=== PATIENT | female | born 1960 | race Caucasian/White ===

== ENCOUNTER 2017-08-09 09:02 | Inpatient (IN) | payer MEDICAID ==
[2017-08-09] MEDS ORDERED: Sodium Chloride 0.9% 1,000 ML IV STA (09:45)
[2017-08-09] MEDS ORDERED: Vancomycin 1 gm/NS 200 ml 1 GM/200 ML BAG IVPB STA (09:45)
--- NOTE | 2017-08-09 09:49 | C.PDOC ---
History Of Present Illness 57 y/o F s/p hernia repair 16 days ago at [facility] p/w abdominal pain x 4 days. Pain is mostly around the incision site on the R. Pain is sharp, constant, worse with palpation or movement. She also report discharge of pus from incision site and temperature of 100.2 last night. Denies chills, dyspnea, cough, dysuria. Contacted surgeon's office but informed physician is away on vacation and given appointment in 6 days. Patient contacted PMD Jose Cobb who instructed patient to go to ED. Time Seen by Provider: 08/09/17 09:19 Chief Complaint (Nursing): Wound Check Past Medical History Vital Signs: Last Vital Signs Temp 98.7 F 08/09/17 11:52 Pulse 61 08/09/17 11:52 Resp 18 08/09/17 11:52 BP 119/69 08/09/17 11:52 Pulse Ox 100 08/09/17 11:52 - Medical History PMH: Arthritis, Asthma, Emphysema, HTN, Hypercholesterolemia, Hyperlipidemia, Kidney Stones, Pneumonia, Sleep Apnea Denies: Chronic Kidney Disease Surgical History: Cholecystectomy Family History: States: No Known Family Hx - Social History Hx Alcohol Use: No Hx Substance Use: No - Immunization History Hx Tetanus Toxoid Vaccination: Yes Hx Influenza Vaccination: No Hx Pneumococcal Vaccination: Yes Review Of Systems Except As Marked, All Systems Reviewed And Found Negative. Cardiovascular: Negative for: Chest Pain Respiratory: Negative for: Shortness of Breath Physical Exam - Physical Exam Additional Physical Exam Comments: Constitutional: No acute distress. Head: Normocephalic. Atraumatic. Eyes: PERRL. EOMI. ENT: Moist mucous membranes. Neck: Supple. Cardiovascular: Regular rate. Radial pulses 2+ bilaterally. Chest: No tenderness. Respiratory: Clear to auscultation bilaterally. Abdomen: Incision along lower abdomen and from umbilicus, no significant surrounding erythema. Small amount of pus visible at intersecting point. Tenderness to R sided incision. Soft. Nondistended. Back: No CVA tenderness. Musculoskeletal: No tenderness or swelling of extremities. Skin: No rash. Neurologic: Alert, no focal deficit. CN II-XII intact. Sensation to light touch intact bilaterally. Motor 5/5 x 4. FTN, HTS normal. Steady gait. ED Course And Treatment - Laboratory Results Result Diagrams: 08/09/17 10:03 08/09/17 10:03 O2 Sat by Pulse Oximetry: 100 Pulse Ox Interpretation: Normal Medical Decision Making Medical Decision Making: Start antibiotics, will image with CT for abscess collection. Patient with previous IV contrast reaction, will obtain with contrast. Check labs, give pain medication. CXR IMPRESSION: No dense consolidation noted. Left perihilar patchy mostly cystic coalescence and wispy -thin fibrotic like scarring appearance may be postinflammatory -and may be chronic. Comparison with any prior outside chest x-ray is recommended. If none, consider follow-up elective CT chest without contrast EKG Sinus rhythm, 54 bpm, no ST/T wave changes. PROCEDURE: CT Abdomen and Pelvis without intravenous contrast HISTORY: hernia repair, pus from incision COMPARISON: None. TECHNIQUE: Axial and reformatted coronal and sagittal CT images of the abdomen and pelvis were obtained without IV or oral contrast administration.. Contrast Dose: 0 Radiation dose: Total exam DLP = 902.97 mGy-cm. This CT exam was performed using one or more of the following dose reduction techniques: Automated exposure control, adjustment of the mA and/or kV according to patient size, and/or use of iterative reconstruction technique. FINDINGS: LOWER THORAX: Unremarkable. LIVER: The liver slightly heterogeneous mildly enlarged. GALLBLADDER AND BILE DUCTS: Status post cholecystectomy. PANCREAS: [id number] fatty infiltration in the pancreas is noted. . No gross lesion or ductal dilatation. SPLEEN: Unremarkable. ADRENALS: Unremarkable. No mass. KIDNEYS AND URETERS: Unremarkable. No hydronephrosis. No solid mass. VASCULATURE: Unremarkable. No aortic aneurysm. BOWEL: Unremarkable. No obstruction. No gross mural thickening. APPENDIX: No evidence of appendicitis. PERITONEUM: Unremarkable. No free fluid. No free air. LYMPH NODES: Unremarkable. No enlarged lymph nodes. BLADDER: Unremarkable. REPRODUCTIVE: Unremarkable. BONES: No acute fracture. OTHER FINDINGS: There is subcutaneous fluid collection at the midline anterior abdominal wall 4.5 centimeter above the level of the umbilicus measures 7.7 centimeter in the transverse diameter and 2.4 centimeter in the AP diameter. There is a another fluid collection at the subcutaneous anterior lower abdominal wall measures 15.6 centimeter in the transverse diameter and 2.8 centimeter in the AP diameter and extending just be low the level of the umbilicus to the level of the anterior pubic ramus. IMPRESSION: Two subcutaneous fluid collections one above the umbilicus and one below the umbilicus as described above may represent postsurgical seroma or abscess formation. Subcutaneous stranding seen at the anterior abdominal wall likely represent postsurgical or inflammatory changes. Fat containing ventral hernia seen at the level of the umbilicus slightly to the left of the midline measures 2.7 centimeter in the AP diameter and 3.2 centimeter in the transverse diameter. No evidence of acute pathology in the abdomen and pelvis otherwise. Hospitalist paged [phone]. Dr. Mariee accepts patient to hospitalist service. Disposition Discussed With : Sherman Mariee Doctor Will See Patient In The: ED - Disposition Disposition: HOSPITALIZED Disposition Time: 11:40 Condition: FAIR Forms: [facility] ([place]auan) - Clinical Impression Clinical Impression: Intra-abdominal abscess - Scribe Statement The provider has reviewed the documentation as recorded by the Scribe Andrez Stein All medical record entries made by the Scribe were at my direction and personally dictated by me. I have reviewed the chart and agree that the record accurately reflects my personal performance of the history, physical exam, medical decision making, and the department course for this patient. I have also personally directed, reviewed, and agree with the discharge instructions and disposition.
[2017-08-09] MEDS ORDERED: Morphine 4 MG/ML VIAL ONE (10:04)
[2017-08-09] MEDS ORDERED: Sodium Chloride 0.9% 1,000 ML ONE ×2 (10:04→13:03)
[2017-08-09 10:12] LABS: BASO % 0.3 % (0.0-2.0); EOS # 0.1 K/uL (0.0-0.7); EOS % 1.1 % (0.0-4.0); HEMATOCRIT 34.4 % (34.0-47.0); LYMPH # 1.6 K/uL (1.0-4.3); LYMPH % 30.2 % (20.0-40.0); MEAN CELL VOLUME 82.5 fL (81.0-99.0); MEAN CORPUSCULAR HEMOGLOBIN 27.2 pg (27.0-31.0); MEAN PLATELET VOLUME 8.4 fL (7.2-11.7); MONO # 0.4 K/uL (0.0-0.8); MONO % 7.9 % (0.0-10.0); RED CELL DISTRIBUTION WIDTH 14.1 % (11.5-14.5); WHITE BLOOD COUNT 5.4 K/uL (4.8-10.8)
[2017-08-09 10:14] LABS: CHLORIDE 105 mmol/L (98-107); INR 1.1; SODIUM 138 mmol/L (132-148)
[2017-08-09 10:15] LABS: POTASSIUM 3.6 mmol/L (3.6-5.2)
[2017-08-09 10:17] LABS: ALB/GLOB RATIO 1.1 (1.0-2.1); ALKALINE PHOSPHATASE 82 U/L (38-126); ALT/SGPT 30 U/L (9-52); AST/SGOT 17 U/L (14-36); BILIRUBIN,TOTAL 0.6 mg/dL (0.2-1.3); BLOOD UREA NITROGEN 12 mg/dL (7-17); CARBON DIOXIDE 26 mmol/L (22-30); GFR AFRICAN-AMERICAN > 60; GLUCOSE,RANDOM 94 mg/dL (65-105); TOTAL PROTEIN 6.9 g/dL (6.3-8.3)
[2017-08-09] MEDS ORDERED: Vancomycin 1 GM 1 GM/250 ML BAG IVPB ONE (10:29)
--- NOTE | 2017-08-09 10:35 | RAD ---
HISTORY: wound infection COMPARISON: No prior. FINDINGS: LUNGS: There is patchy wisp like linear opacities projecting over the left perihilar/ left upper lung zone which may represent combined coalescence pulmonary cystic changes with postinflammatory thin scarring. No comparisons available to evaluate chronicity. PLEURA: No significant pleural effusion identified, no pneumothorax apparent. CARDIOVASCULAR: Top-normal OSSEOUS STRUCTURES: No significant abnormalities. VISUALIZED UPPER ABDOMEN: Normal. OTHER FINDINGS: None. IMPRESSION: No dense consolidation noted. Left perihilar patchy mostly cystic coalescence and wispy -thin fibrotic like scarring appearance may be postinflammatory -and may be chronic. Comparison with any prior outside chest x-ray is recommended. If none, consider follow-up elective CT chest without contrast
[2017-08-09 11:09] LABS: RBC URINE 6 /hpf (0-3); URINE BACTERIA OCC (<OCC); URINE BILIRUBIN NEGATIVE (NEGATIVE); URINE BLOOD 1+ (NEGATIVE); URINE CALCIUM OXALATE CRYSTALS FEW /hpf (<OCC); URINE COLOR Yellow (YELLOW); URINE GLUCOSE (UA) NORMAL (Normal); URINE KETONE NEGATIVE (NEGATIVE); URINE LEUKOCYTE ESTERASE NEG Leu/uL (Negative); URINE PROTEIN 1+ mg/dL (NEGATIVE); URINE UROBILINOGEN NORMAL mg/dL (0.2-1.0); WBC URINE 4 /hpf (0-5)
--- NOTE | 2017-08-09 11:26 | CT ---
PROCEDURE: CT Abdomen and Pelvis without intravenous contrast HISTORY: hernia repair, pus from incision COMPARISON: None. TECHNIQUE: Axial and reformatted coronal and sagittal CT images of the abdomen and pelvis were obtained without IV or oral contrast administration.. Contrast Dose: 0 Radiation dose: Total exam DLP = 902.97 mGy-cm. This CT exam was performed using one or more of the following dose reduction techniques: Automated exposure control, adjustment of the mA and/or kV according to patient size, and/or use of iterative reconstruction technique. FINDINGS: LOWER THORAX: Unremarkable. LIVER: The liver slightly heterogeneous mildly enlarged. GALLBLADDER AND BILE DUCTS: Status post cholecystectomy. PANCREAS: [id number]-[id number] fatty infiltration in the pancreas is noted. . No gross lesion or ductal dilatation. SPLEEN: Unremarkable. ADRENALS: Unremarkable. No mass. KIDNEYS AND URETERS: Unremarkable. No hydronephrosis. No solid mass. VASCULATURE: Unremarkable. No aortic aneurysm. BOWEL: Unremarkable. No obstruction. No gross mural thickening. APPENDIX: No evidence of appendicitis. PERITONEUM: Unremarkable. No free fluid. No free air. LYMPH NODES: Unremarkable. No enlarged lymph nodes. BLADDER: Unremarkable. REPRODUCTIVE: Unremarkable. BONES: No acute fracture. OTHER FINDINGS: There is subcutaneous fluid collection at the midline anterior abdominal wall 4.5 centimeter above the level of the umbilicus measures 7.7 centimeter in the transverse diameter and 2.4 centimeter in the AP diameter. There is a another fluid collection at the subcutaneous anterior lower abdominal wall measures 15.6 centimeter in the transverse diameter and 2.8 centimeter in the AP diameter and extending just be low the level of the umbilicus to the level of the anterior pubic ramus. IMPRESSION: Two subcutaneous fluid collections one above the umbilicus and one below the umbilicus as described above may represent postsurgical seroma or abscess formation. Subcutaneous stranding seen at the anterior abdominal wall likely represent postsurgical or inflammatory changes. Fat containing ventral hernia seen at the level of the umbilicus slightly to the left of the midline measures 2.7 centimeter in the AP diameter and 3.2 centimeter in the transverse diameter. No evidence of acute pathology in the abdomen and pelvis otherwise.
--- NOTE | 2017-08-09 12:25 | CP.PCM.HP ---
<Barbara Gomes - Last Filed: 08/09/17 15:01> History of Present Illness - History of Present Illness History of Present Illness: Medicine Note for Hospitalist Service CC: abdominal pain HPI: 57F with PMHx of presents to the ED s/p tummy tuck (and 2 inguinal hernia repair) performed on 07/24/17 with fever, chills, and abdominal pain. Patient reports she was discharged the same day of the surgery and instructed to take Keflex 500mg PO daily x 2 weeks. She started to have fever, chills, abdominal pain, n/v/d, and vaginal bleeding (spotting) and discharged. Patient reports she has been having immense pain, discharge and pus from the surgical site. Denied headache, chest pain, SOB, or uinary symptoms. PMHx: HTN, DM, Breast Cancer Stage 2 currently undergoing Radiation (next session 08/16/17), Arthritis, Asthma PSHx: Gastric Bypass, then Bypass Reversal, cholecystectomy, chest tube 2/2 pneumothorax, carpal tunnel bilaterally Meds: As per MAR, confirmed and reviewed All: NKDA, reaction to IV contrast that occurred once SHx: Denied tobacco, ETOH, or illicit drug use FHx: Mother and Maternal Grandmother of breast cancer in their 50s. Father of colon cancer Patient reports she had colonoscopy this year, normal. PMD: Jose Cobb Present on Admission - Present on Admission Any Indicators Present on Admission: No Past Patient History - Infectious Disease Hx of Infectious Diseases: None - Past Medical History & Family History Past Medical History?: Yes - Past Social History Smoking Status: Never Smoked - CARDIAC Hx Hypercholesterolemia: Yes Hx Hypertension: Yes - PULMONARY Hx Asthma: Yes Hx Emphysema: Yes Hx Pneumonia: Yes Hx Sleep Apnea: Yes - NEUROLOGICAL Hx Neurological Disorder: No - HEENT Hx HEENT Problems: No - RENAL Hx Chronic Kidney Disease: No Hx Kidney Stones: Yes - ENDOCRINE/METABOLIC Hx Endocrine Disorders: Yes Hx Diabetes Mellitus Type 2: Yes - HEMATOLOGICAL/ONCOLOGICAL Hx Blood Disorders: Yes Hx Cancer: Yes (LT BREAST CA) - INTEGUMENTARY Hx Dermatological Problems: No - MUSCULOSKELETAL/RHEUMATOLOGICAL Hx Arthritis: Yes - GASTROINTESTINAL Hx Gastrointestinal Disorders: No - GENITOURINARY/GYNECOLOGICAL Hx Genitourinary Disorders: No - PSYCHIATRIC Hx Substance Use: No - SURGICAL HISTORY Hx Cholecystectomy: Yes - ANESTHESIA Hx Anesthesia: Yes Hx Anesthesia Reactions: No Hx Malignant Hyperthermia: No Meds Allergies/Adverse Reactions: Allergies Allergy/AdvReac Type Severity Reaction Status Date / Time No Known Allergies Allergy Verified 08/09/17 09:09 Physical Exam - Head Exam Head Exam: NORMAL INSPECTION, NORMOCEPHALIC - Eye Exam Eye Exam: EOMI, Normal appearance, PERRL Pupil Exam: NORMAL ACCOMODATION - ENT Exam ENT Exam: Mucous Membranes Moist Additional comments: ORAL THRUSH NOTED ON TONGUE - Neck Exam Neck exam: Positive for: Normal Inspection. Negative for: Lymphadenopathy, Thyromegaly - Respiratory Exam Respiratory Exam: Clear to Auscultation Bilateral, NORMAL BREATHING PATTERN. absent: Decreased Breath Sounds, Wheezes - Cardiovascular Exam Cardiovascular Exam: REGULAR RHYTHM - GI/Abdominal Exam GI & Abdominal Exam: Mass (epigastric area TTP; Incision along lower abdomen and from umbilicus, no significant surrounding erythema. Small amount of pus visible at intersecting point. Tenderness to R sided incision. ), Soft, Tenderness. absent: Distended, Organomegaly - Extremities Exam Extremities exam: Positive for: normal inspection, pedal pulses present. Negative for: pedal edema, tenderness - Back Exam Back exam: NORMAL INSPECTION - Neurological Exam Neurological exam: Alert, CN II-XII Intact, Oriented x3 - Psychiatric Exam Psychiatric exam: Normal Affect, Normal Mood - Skin Skin Exam: Dry, Intact, Normal Color, Warm Results - Vital Signs Recent Vital Signs: Last Vital Signs Temp 98.7 F 08/09/17 11:52 Pulse 61 08/09/17 11:52 Resp 18 08/09/17 11:52 BP 119/69 08/09/17 11:52 Pulse Ox 100 08/09/17 12:21 - Labs Result Diagrams: 08/09/17 10:03 08/09/17 10:03 Labs: Laboratory Results - last 24 hr 08/09/17 08/09/17 08/09/17 10:03 10:03 10:03 WBC 5.4 RBC 4.17 Hgb 11.3 Hct 34.4 MCV 82.5 MCH 27.2 MCHC 33.0 RDW 14.1 Plt Count 213 MPV 8.4 Neut % (Auto) 60.5 Lymph % (Auto) 30.2 [place] % (Auto) 7.9 Eos % (Auto) 1.1 Baso % (Auto) 0.3 Neut # 3.3 Lymph # 1.6 [place] # 0.4 Eos # 0.1 Baso # 0.0 PT 12.0 INR 1.1 APTT 28 Sodium 138 Potassium 3.6 Chloride 105 Carbon Dioxide 26 Anion Gap 11 BUN 12 Creatinine 0.6 L Est GFR ( Amer) > 60 Est GFR (Non-Af Amer) > 60 Random Glucose 94 Calcium 9.0 Total Bilirubin 0.6 AST 17 ALT 30 Alkaline Phosphatase 82 Total Protein 6.9 Albumin 3.6 Globulin 3.3 Albumin/Globulin Ratio 1.1 Lipase 25 Urine Color Urine Clarity Urine pH Ur Specific [place] Urine Protein Urine Glucose (UA) Urine Ketones Urine Blood Urine Nitrate Urine Bilirubin Urine Urobilinogen Ur Leukocyte Esterase Urine WBC (Auto) Urine RBC (Auto) Ur Squamous Epith Cells Calcium Oxalate Crystal Urine Bacteria Blood Type Antibody Screen 08/09/17 08/09/17 10:30 10:30 WBC RBC Hgb Hct MCV MCH MCHC RDW Plt Count MPV Neut % (Auto) Lymph % (Auto) [place] % (Auto) Eos % (Auto) Baso % (Auto) Neut # Lymph # [place] # Eos # Baso # PT INR APTT Sodium Potassium Chloride Carbon Dioxide Anion Gap BUN Creatinine Est GFR ( Amer) Est GFR (Non-Af Amer) Random Glucose Calcium Total Bilirubin AST ALT Alkaline Phosphatase Total Protein Albumin Globulin Albumin/Globulin Ratio Lipase Urine Color Yellow Urine Clarity Hazy Urine pH 5.0 Ur Specific [place] 1.020 Urine Protein 1+ H Urine Glucose (UA) Normal Urine Ketones Negative Urine Blood 1+ H Urine Nitrate Negative Urine Bilirubin Negative Urine Urobilinogen Normal Ur Leukocyte Esterase Neg Urine WBC (Auto) 4 Urine RBC (Auto) 6 H Ur Squamous Epith Cells 6 H Calcium Oxalate Crystal Few H Urine Bacteria Occ H Blood Type A POSITIVE Antibody Screen Negative Assessment & Plan - Assessment and Plan (Free Text) Plan: Intraabdominal Abscess S/P tummy tuck, R inguinal hernia x 2 07/24/17 - Surgeon Dr. Tera Gentile? established [facility] Afebrile, no leukocytosis or left shift CT abdomen and pelvis 08/09/17: Two subcutaneous fluid collections one above the umbilicus and one below the umbilicus as described above may represent postsurgical seroma or abscess formation.Subcutaneous stranding seen at the anterior abdominal wall likely represent postsurgical or inflammatory changes. Fat containing ventral hernia seen at the level of the umbilicus slightly to the left of the midline measures 2.7 centimeter in the AP diameter and 3.2 centimeter in the transverse diameter. No evidence of acute pathology in the abdomen and pelvis otherwise. F/U BC, UC, WC, vanco trough NS @ 100cc/hr Started on Vancomycin 1gram daily, Zosyn Q6H Tramadol, Morphine PRN, Colace PO TID, Zofran PRN Hx of HTN Continue home medications: HCTZ 12.5 PO daily, Cozaar 100mg PO daily, Norvasc 5mg PO daily Hx of Asthma Continue home medications: Singulair 10mg PO daily Pulm: Dr. Krause Hx of DM Accuchecks F/U A1C ISS- Medium Oral Thrush One time dose of Diflucan, magic mouthwash Hx Anxiety/Depression Resumed home medications: Xanax, Restoril and Lexapro Hx of Breast Cancer Currently undergoing Radiation, next session 08/16/17 Strong family history of breast cancer-mother and maternal grandmother of breast cancer 50s Heme/Onc: [facility] Maintenance Colonoscopy performed this year WNL - father of colon cancer Prophylactic Measures GI PPX: Protonix 40mg IVP daily DVT PPX: SCDs, anticoag held due to possible OR HHD DW Mireya Barriga DO, PGY-1 <Sherman Mariee - Last Filed: 08/09/17 17:39> Results - Vital Signs Recent Vital Signs: Last Vital Signs Temp 98.7 F 08/09/17 11:52 Pulse 61 08/09/17 11:52 Resp 20 08/09/17 14:13 BP 119/69 08/09/17 11:52 Pulse Ox 100 08/09/17 12:21 - Labs Result Diagrams: 08/09/17 10:03 08/09/17 10:03 Labs: Laboratory Results - last 24 hr 08/09/17 08/09/17 08/09/17 10:03 10:03 10:03 WBC 5.4 RBC 4.17 Hgb 11.3 Hct 34.4 MCV 82.5 MCH 27.2 MCHC 33.0 RDW 14.1 Plt Count 213 MPV 8.4 Neut % (Auto) 60.5 Lymph % (Auto) 30.2 [place] % (Auto) 7.9 Eos % (Auto) 1.1 Baso % (Auto) 0.3 Neut # 3.3 Lymph # 1.6 [place] # 0.4 Eos # 0.1 Baso # 0.0 PT 12.0 INR 1.1 APTT 28 Sodium 138 Potassium 3.6 Chloride 105 Carbon Dioxide 26 Anion Gap 11 BUN 12 Creatinine 0.6 L Est GFR ( Amer) > 60 Est GFR (Non-Af Amer) > 60 POC Glucose (mg/dL) Random Glucose 94 Calcium 9.0 Total Bilirubin 0.6 AST 17 ALT 30 Alkaline Phosphatase 82 Total Protein 6.9 Albumin 3.6 Globulin 3.3 Albumin/Globulin Ratio 1.1 Lipase 25 Urine Color Urine Clarity Urine pH Ur Specific [place] Urine Protein Urine Glucose (UA) Urine Ketones Urine Blood Urine Nitrate Urine Bilirubin Urine Urobilinogen Ur Leukocyte Esterase Urine WBC (Auto) Urine RBC (Auto) Ur Squamous Epith Cells Calcium Oxalate Crystal Urine Bacteria Blood Type Antibody Screen 08/09/17 08/09/17 08/09/17 10:30 10:30 17:16 WBC RBC Hgb Hct MCV MCH MCHC RDW Plt Count MPV Neut % (Auto) Lymph % (Auto) [place] % (Auto) Eos % (Auto) Baso % (Auto) Neut # Lymph # [place] # Eos # Baso # PT INR APTT Sodium Potassium Chloride Carbon Dioxide Anion Gap BUN Creatinine Est GFR ( Amer) Est GFR (Non-Af Amer) POC Glucose (mg/dL) 108 Random Glucose Calcium Total Bilirubin AST ALT Alkaline Phosphatase Total Protein Albumin Globulin Albumin/Globulin Ratio Lipase Urine Color Yellow Urine Clarity Hazy Urine pH 5.0 Ur Specific [place] 1.020 Urine Protein 1+ H Urine Glucose (UA) Normal Urine Ketones Negative Urine Blood 1+ H Urine Nitrate Negative Urine Bilirubin Negative Urine Urobilinogen Normal Ur Leukocyte Esterase Neg Urine WBC (Auto) 4 Urine RBC (Auto) 6 H Ur Squamous Epith Cells 6 H Calcium Oxalate Crystal Few H Urine Bacteria Occ H Blood Type A POSITIVE Antibody Screen Negative Attending/Attestation - Attestation I have personally seen and examined this patient.: Yes I have fully participated in the care of the patient.: Yes I have reviewed all pertinent clinical information: Yes Notes (Text): Medical attending: Patient was seen and examined by me, agree with the above note by medical billing manager. This is a very nice 57-year-old female who very recently has had several abdominal procedures. On being told that she has recently had an abdominal hernia repair x 2 as well as abdominalplasty. Of note the patient also has a history of gastric bypass. She also had a recent follow-up with surgery and had the abdominal drains removed. She was given a prescription for Keflex to be continued and she's been taking that however she reports that for the past several days she's had progressively worsening fever, pain is also noted some purulent discharge from the wound sites. When we saw her she was removed up to the sixth floor, she is not under any acute distress when we saw her. In the medical billing manager had already started vancomycin and Zosyn. I agree with this. We will follow her blood cultures as well as the wound cultures. At this moment remains to be seen in these areas will have to are surgical intervention or free can be drained via IR for example As mentioned previously the patient had a CT scan of the abdomen and pelvis which showed that she has at least 2 small areas of potential a lot to be an abscess. There is no mention of a mesh used in the report. Also there is a history of breast cancer. The patient is no longer getting chemotherapy but she explains to us that she still recently getting radiation treatments. Thank you very much, Sherman Mariee
[2017-08-09] MEDS: Sodium Chloride 0.9% 1,000 ML IV SCH (12:59)
[2017-08-09] MEDS ORDERED: Piperacillin/Tazobact 3.375 gm 100 ML IVPB ONE (13:03)
--- NOTE | 2017-08-09 14:10 | CP.PCM.CON ---
History of Present Illness - History of Present Illness History of Present Illness: General Surgery Dr. Velasco 57 y/o F w/ PMHx of HTN, HLD, DM2, gastric bypass presents other ED c/o abd pain and drainage s/p abdominoplasty on 07/24. Pt states she had surgery at [facility] on 07/24. Post-op, pt was told she had 2 incidental hernia that were repaired. Pt is unsure if they were repaired primarily or w/ mesh. Pt admits to taking cephlexin as prescribed by the surgeon. Pt reports attending her follow up appoint on 08/01 at which time 2 drains were removed from her incision line. Pt reports fever, chills, abd pain beginning that evening. Pt report foul- smelling drainage from lateral aspects of incision and umbilicus. Pt also admits to nausea, vomiting, diarrhea, constipation, and pain after bowel mvt. PMHx: HTN, HLD, asthma, pneumonia w/ empyema, DM2, breast Ca, herniated disks, vertigo Meds: reviewed in chart NKDA PSHx: abdominoplasty (07/24/17), laparoscopic gastric bypass w/ josué, L breast lumpectomy, B/L carpal tunnel release, chest tube SHx: denies tobacco, EtOH, drug use FHx: noncontributory Review of Systems - Review of Systems All systems: reviewed and no additional remarkable complaints except (see HPI) Past Patient History - Infectious Disease Hx of Infectious Diseases: None - Past Medical History & Family History Past Medical History?: Yes - Past Social History Smoking Status: Never Smoked - CARDIAC Hx Hypercholesterolemia: Yes Hx Hypertension: Yes - PULMONARY Hx Asthma: Yes Hx Emphysema: Yes Hx Pneumonia: Yes Hx Sleep Apnea: Yes - NEUROLOGICAL Hx Neurological Disorder: No - HEENT Hx HEENT Problems: No - RENAL Hx Chronic Kidney Disease: No Hx Kidney Stones: Yes - ENDOCRINE/METABOLIC Hx Endocrine Disorders: Yes Hx Diabetes Mellitus Type 2: Yes - HEMATOLOGICAL/ONCOLOGICAL Hx Blood Disorders: Yes Hx Cancer: Yes (LT BREAST CA) - INTEGUMENTARY Hx Dermatological Problems: No - MUSCULOSKELETAL/RHEUMATOLOGICAL Hx Arthritis: Yes - GASTROINTESTINAL Hx Gastrointestinal Disorders: No - GENITOURINARY/GYNECOLOGICAL Hx Genitourinary Disorders: No - PSYCHIATRIC Hx Substance Use: No - SURGICAL HISTORY Hx Cholecystectomy: Yes - ANESTHESIA Hx Anesthesia: Yes Hx Anesthesia Reactions: No Hx Malignant Hyperthermia: No Meds Allergies/Adverse Reactions: Allergies Allergy/AdvReac Type Severity Reaction Status Date / Time No Known Allergies Allergy Verified 08/09/17 09:09 - Medications Medications: Current Medications Acetaminophen (Tylenol 325mg Tab) 650 mg PO Q6 PRN PRN Reason: Fever >100.4 F Alprazolam (Xanax) 0.5 mg PO DAILY [facility] Amlodipine Besylate (Norvasc) 20 mg PO DAILY [facility] Docusate Sodium (Colace) 100 mg PO TID [facility] Hydrochlorothiazide (Microzide) 12.5 mg PO DAILY [facility] Sodium Chloride (Sodium Chloride 0.9%) 1,000 mls @ 100 mls/hr IV .Q10H [facility] Last Admin: 08/09/17 12:59 Dose: 100 mls/hr Piperacillin Sod/Tazobactam Sod (Zosyn 3.375 Gm Iv Premix) 3.375 gm in 50 mls @ 100 mls/hr IVPB Q6H [facility] Vancomycin/Sodium Chloride (Vancomycin 1 Gm/Ns 200 Ml) 1 gm in 200 mls @ 133.333 mls/hr IVPB Q24H [facility] Stop: 08/15/17 10:01 Losartan Potassium (Cozaar) 100 mg PO DAILY [facility] Montelukast Sodium (Singulair) 10 mg PO DAILY [facility] Morphine Sulfate (Morphine) 1 mg IVP Q4H PRN PRN Reason: Pain, severe (8-10) Ondansetron HCl (Zofran Inj) 4 mg IVP Q6 PRN PRN Reason: Nausea/Vomiting Pantoprazole Sodium (Protonix Ec Tab) 40 mg PO DAILY [facility] Temazepam (Restoril) 30 mg PO HS [facility] Physical Exam - Constitutional Appears: Non-toxic, No Acute Distress - Head Exam Head Exam: NORMAL INSPECTION - Eye Exam Eye Exam: Normal appearance - ENT Exam ENT Exam: Mucous Membranes Moist - Respiratory Exam Respiratory Exam: NORMAL BREATHING PATTERN. absent: Accessory Muscle Use, Respiratory Distress - Cardiovascular Exam Cardiovascular Exam: absent: Bradycardia, Tachycardia - GI/Abdominal Exam GI & Abdominal Exam: Soft, Tenderness (chandana-incisional TTP). absent: Distended , Rebound, Rigid Additional comments: lower abd incision well approximated. no drainage noted mild erythema, no induration or fluctuance palpable - Extremities Exam Extremities exam: Positive for: normal inspection - Neurological Exam Neurological exam: Alert, Oriented x3 - Psychiatric Exam Psychiatric exam: Normal Affect, Normal Mood - Skin Skin Exam: Dry, Normal Color, Warm Results - Vital Signs Recent Vital Signs: Last Vital Signs Temp 98.7 F 08/09/17 11:52 Pulse 61 08/09/17 11:52 Resp 18 08/09/17 11:52 BP 119/69 08/09/17 11:52 Pulse Ox 100 08/09/17 12:21 - Labs Result Diagrams: 08/09/17 10:03 08/09/17 10:03 Labs: Laboratory Results - last 24 hr 08/09/17 08/09/17 08/09/17 10:03 10:03 10:03 WBC 5.4 RBC 4.17 Hgb 11.3 Hct 34.4 MCV 82.5 MCH 27.2 MCHC 33.0 RDW 14.1 Plt Count 213 MPV 8.4 Neut % (Auto) 60.5 Lymph % (Auto) 30.2 [place] % (Auto) 7.9 Eos % (Auto) 1.1 Baso % (Auto) 0.3 Neut # 3.3 Lymph # 1.6 [place] # 0.4 Eos # 0.1 Baso # 0.0 PT 12.0 INR 1.1 APTT 28 Sodium 138 Potassium 3.6 Chloride 105 Carbon Dioxide 26 Anion Gap 11 BUN 12 Creatinine 0.6 L Est GFR ( Amer) > 60 Est GFR (Non-Af Amer) > 60 Random Glucose 94 Calcium 9.0 Total Bilirubin 0.6 AST 17 ALT 30 Alkaline Phosphatase 82 Total Protein 6.9 Albumin 3.6 Globulin 3.3 Albumin/Globulin Ratio 1.1 Lipase 25 Urine Color Urine Clarity Urine pH Ur Specific Tiger Urine Protein Urine Glucose (UA) Urine Ketones Urine Blood Urine Nitrate Urine Bilirubin Urine Urobilinogen Ur Leukocyte Esterase Urine WBC (Auto) Urine RBC (Auto) Ur Squamous Epith Cells Calcium Oxalate Crystal Urine Bacteria Blood Type Antibody Screen 08/09/17 08/09/17 10:30 10:30 WBC RBC Hgb Hct MCV MCH MCHC RDW Plt Count MPV Neut % (Auto) Lymph % (Auto) [place] % (Auto) Eos % (Auto) Baso % (Auto) Neut # Lymph # [place] # Eos # Baso # PT INR APTT Sodium Potassium Chloride Carbon Dioxide Anion Gap BUN Creatinine Est GFR ( Amer) Est GFR (Non-Af Amer) Random Glucose Calcium Total Bilirubin AST ALT Alkaline Phosphatase Total Protein Albumin Globulin Albumin/Globulin Ratio Lipase Urine Color Yellow Urine Clarity Hazy Urine pH 5.0 Ur Specific Tiger 1.020 Urine Protein 1+ H Urine Glucose (UA) Normal Urine Ketones Negative Urine Blood 1+ H Urine Nitrate Negative Urine Bilirubin Negative Urine Urobilinogen Normal Ur Leukocyte Esterase Neg Urine WBC (Auto) 4 Urine RBC (Auto) 6 H Ur Squamous Epith Cells 6 H Calcium Oxalate Crystal Few H Urine Bacteria Occ H Blood Type A POSITIVE Antibody Screen Negative - Imaging and Cardiology CT scan - abdomen Status: Report reviewed by me Assessment & Plan - Assessment and Plan (Free Text) Assessment: 57 y/o F s/p abdominoplasty w/ incisional abscess vs seroma - IV Abx - warm compresses TID - pain management - f/u wound Cx - cont medical management Pt discussed w/ Dr. Krista Bhakta DO PGY2
[2017-08-09] MEDS ORDERED: Promethazine 12.5 mg/10 ml Syrup PO PRN (14:51)
[2017-08-09] MEDS: (Novolin R) Insulin Human Regular 100 units/ml vial SC SCH ×2 (17:23→22:27)
[2017-08-09] MEDS: Tramadol 25 mg PO PRN (17:33)
[2017-08-09] MEDS: Piperacill/Tazo 3.375gm in Dex 3.375 GM/50 ML BAG IVPB SCH (19:38)
[2017-08-09] MEDS: Mag&Al/Simet/Diphen/Lido 237 ML KIT PO SCH (19:41)
[2017-08-10] MEDS: Sodium Chloride 0.9% 1,000 ML IV SCH ×3 (00:50→21:42)
[2017-08-10] MEDS: Piperacill/Tazo 3.375gm in Dex 3.375 GM/50 ML BAG IVPB SCH ×4 (01:06→18:53)
[2017-08-10 08:10] LABS: BASO % 0.1 % (0.0-2.0); EOS % 1.8 % (0.0-4.0); HEMATOCRIT 28.9 % (34.0-47.0); LYMPH # 0.3 K/uL (1.0-4.3); LYMPH % 13.1 % (20.0-40.0); MEAN CORPUSCULAR HEMOGLOBIN 27.7 pg (27.0-31.0); MEAN CORPUSCULAR HGB CONC 33.7 g/dL (33.0-37.0); MEAN PLATELET VOLUME 8.2 fL (7.2-11.7); MONO # 0.2 K/uL (0.0-0.8); MONO % 8.4 % (0.0-10.0); RED CELL DISTRIBUTION WIDTH 14.2 % (11.5-14.5)
[2017-08-10] MEDS: (Novolin R) Insulin Human Regular 100 units/ml vial SC SCH ×4 (08:12→21:30)
[2017-08-10 08:15] LABS: CHLORIDE 102 mmol/L (98-107); POTASSIUM 3.6 mmol/L (3.6-5.2); SODIUM 135 mmol/L (132-148)
[2017-08-10 08:16] LABS: BILIRUBIN,TOTAL 0.7 mg/dL (0.2-1.3); CARBON DIOXIDE 24 mmol/L (22-30); CHOLESTEROL 124 mg/dL (0-199); GFR AFRICAN-AMERICAN > 60
[2017-08-10 08:17] LABS: ALB/GLOB RATIO 1.2 (1.0-2.1); ALKALINE PHOSPHATASE 68 U/L (38-126); ALT/SGPT 29 U/L (9-52); AST/SGOT 17 U/L (14-36); BLOOD UREA NITROGEN 10 mg/dL (7-17); CALCIUM 7.9 mg/dl (8.6-10.4); GLUCOSE,RANDOM 84 mg/dL (65-105); PHOSPHOROUS 4.8 mg/dL (2.5-4.5); TOTAL PROTEIN 5.4 g/dL (6.3-8.3)
[2017-08-10 08:18] LABS: MAGNESIUM 1.8 mg/dL (1.6-2.3)
[2017-08-10 08:19] LABS: WHITE BLOOD COUNT 2.5 K/uL (4.8-10.8)
[2017-08-10] MEDS ORDERED: Oxycodone/Acetaminophen 5/325 mg Tab PO PRN (08:44)
[2017-08-10] MEDS ORDERED: Bisacodyl 5mg EC Tab PO ONE (09:42)
--- NOTE | 2017-08-10 09:42 | CP.PCM.PN ---
Subjective - Date & Time of Evaluation Date of Evaluation: 08/10/17 Time of Evaluation: 06:45 - Subjective Subjective: General Surgery Dr. Velasco Pt seen and examined @bedside. no events overnight. c/o chandana-incisional pain. admits chills. no fever, N&V, diarrhea, constipation. tolerating diet. Objective - Vital Signs/Intake and Output Vital Signs (last 24 hours): Temp Pulse Resp BP Pulse Ox 98.2 F 72 20 104/68 97 08/10/17 07:30 08/10/17 07:30 08/10/17 07:30 08/10/17 07:30 08/10/17 07:30 - Medications Medications: Current Medications Acetaminophen (Tylenol 325mg Tab) 650 mg PO Q6 PRN PRN Reason: Fever >100.4 F Alprazolam (Xanax) 0.5 mg PO DAILY [facility] Amlodipine Besylate (Norvasc) 10 mg PO DAILY [facility] Docusate Sodium (Colace) 100 mg PO TID [facility] Last Admin: 08/09/17 17:33 Dose: 100 mg Escitalopram Oxalate (Lexapro) 10 mg PO DAILY [facility] Hydrochlorothiazide (Microzide) 12.5 mg PO DAILY [facility] Sodium Chloride (Sodium Chloride 0.9%) 1,000 mls @ 100 mls/hr IV .Q10H [facility] Last Admin: 08/10/17 00:50 Dose: 100 mls/hr Piperacillin Sod/Tazobactam Sod (Zosyn 3.375 Gm Iv Premix) 3.375 gm in 50 mls @ 100 mls/hr IVPB Q6H [facility] Last Admin: 08/10/17 06:01 Dose: 100 mls/hr Vancomycin/Sodium Chloride (Vancomycin 1 Gm/Ns 200 Ml) 1 gm in 200 mls @ 133.333 mls/hr IVPB Q24H [facility] Stop: 08/15/17 10:01 Insulin Human Regular (Novolin R) 0 unit SC ACHS [facility] PRN Reason: Protocol Last Admin: 08/10/17 08:12 Dose: Not Given Losartan Potassium (Cozaar) 100 mg PO DAILY [facility] Montelukast Sodium (Singulair) 10 mg PO QPM [facility] Morphine Sulfate (Morphine) 1 mg IVP Q4H PRN PRN Reason: Pain, severe (8-10) Last Admin: 08/10/17 05:57 Dose: 1 mg Ondansetron HCl (Zofran Inj) 4 mg IVP Q6 PRN PRN Reason: Nausea/Vomiting Pantoprazole Sodium (Protonix Ec Tab) 40 mg PO DAILY [facility] Pneumococcal Polyvalent Vaccine (Pneumovax 23 Vaccine) 0.5 ml IM .ONCE ONE Stop: 08/11/17 10:01 Promethazine HCl (Phenergan Syrup) 12.5 mg PO Q6 PRN PRN Reason: Cough Saliva Substitute (First Magic Mouthwash) 1 ml PO BID [facility] Last Admin: 08/09/17 19:41 Dose: 1 ml Temazepam (Restoril) 30 mg PO HS [facility] Last Admin: 08/09/17 21:31 Dose: 30 mg Tramadol HCl (Ultram) 25 mg PO TID PRN PRN Reason: Pain, moderate (4-7) Last Admin: 08/09/17 17:33 Dose: 25 mg - Labs Labs: 08/10/17 07:55 08/10/17 07:55 PT 12.0 SECONDS (9.7-12.2) 08/09/17 10:03 INR 1.1 08/09/17 10:03 APTT 28 SECONDS (21-34) 08/09/17 10:03 - Constitutional Appears: Non-toxic, No Acute Distress - Head Exam Head Exam: NORMAL INSPECTION - Eye Exam Eye Exam: Normal appearance - ENT Exam ENT Exam: Mucous Membranes Moist - Respiratory Exam Respiratory Exam: NORMAL BREATHING PATTERN. absent: Accessory Muscle Use, Respiratory Distress - Cardiovascular Exam Cardiovascular Exam: absent: Bradycardia, Tachycardia - GI/Abdominal Exam GI & Abdominal Exam: Soft, Tenderness (chandana-incisional TTP). absent: Distended , Guarding, Rebound Additional comments: lower abd incision c/d/i. no erythema, induration, fluctuance. no drainage noted - Extremities Exam Extremities Exam: Normal Inspection - Neurological Exam Neurological Exam: Alert, Awake, Oriented x3 - Psychiatric Exam Psychiatric exam: Normal Affect, Normal Mood - Skin Skin Exam: Dry, Normal Color, Warm Assessment and Plan - Assessment and Plan (Free Text) Assessment: 57 y/o F s/p abdominoplasty w/ likely incisional seroma - on review of CT, likely seroma vs abscess as no capsule or surrounding inflammation beyond normal post-surgical changes - recommed stopping Iv Abx as no leukocytosis - warm compresses TID - pain management - f/u wound Cx - cont medical management Pt discussed w/ Dr. Krista Bhakta DO PGY2
[2017-08-10] MEDS ORDERED: POLYETHYLENE GLYCOL 3350 17 GM/Dose PACKET PO ONE (10:00)
[2017-08-10] MEDS: Mag&Al/Simet/Diphen/Lido 237 ML KIT PO SCH ×2 (10:21→19:21)
[2017-08-10] MEDS: Pantoprazole 40 mg EC Tab PO SCH (11:13)
[2017-08-10] MEDS: Vancomycin 1 gm/NS 200 ml 1 GM/200 ML BAG IVPB SCH (11:23)
--- NOTE | 2017-08-10 12:54 | CP.PCM.PN ---
<Shanika Gomesa - Last Filed: 08/10/17 12:50> Subjective - Date & Time of Evaluation Date of Evaluation: 08/10/17 Time of Evaluation: 09:00 - Subjective Subjective: Medicine Note for Dr. Mariee Patient was seen and examined at bedside. Patient reports she did not sleep well last night. Admitted her pain is moderate despite pain medication. She has abdominal pain, nausea, and abdominal pain. Denied fever, chills, headache, chest pain, n/v/d, or urinary symptoms. Objective - Vital Signs/Intake and Output Vital Signs (last 24 hours): Temp Pulse Resp BP Pulse Ox 98.2 F 72 20 104/68 97 08/10/17 07:30 08/10/17 07:30 08/10/17 07:30 08/10/17 07:30 08/10/17 07:30 - Medications Medications: Current Medications Acetaminophen (Tylenol 325mg Tab) 650 mg PO Q6 PRN PRN Reason: Fever >100.4 F Alprazolam (Xanax) 0.5 mg PO DAILY [facility] Last Admin: 08/10/17 11:13 Dose: 0.5 mg Amlodipine Besylate (Norvasc) 10 mg PO DAILY [facility] Last Admin: 08/10/17 11:13 Dose: 10 mg Docusate Sodium (Colace) 100 mg PO TID [facility] Last Admin: 08/10/17 11:21 Dose: 100 mg Escitalopram Oxalate (Lexapro) 10 mg PO DAILY [facility] Last Admin: 08/10/17 11:13 Dose: 10 mg Hydrochlorothiazide (Microzide) 12.5 mg PO DAILY [facility] Last Admin: 08/10/17 11:13 Dose: 12.5 mg Piperacillin Sod/Tazobactam Sod (Zosyn 3.375 Gm Iv Premix) 3.375 gm in 50 mls @ 100 mls/hr IVPB Q6H [facility] Last Admin: 08/10/17 06:01 Dose: 100 mls/hr Vancomycin/Sodium Chloride (Vancomycin 1 Gm/Ns 200 Ml) 1 gm in 200 mls @ 133.333 mls/hr IVPB Q24H [facility] Stop: 08/15/17 10:01 Last Admin: 08/10/17 11:23 Dose: 133.333 mls/hr Sodium Chloride (Sodium Chloride 0.9%) 1,000 mls @ 125 mls/hr IV .Q8H [facility] Insulin Human Regular (Novolin R) 0 unit SC ACHS [facility] PRN Reason: Protocol Last Admin: 08/10/17 11:22 Dose: Not Given Losartan Potassium (Cozaar) 100 mg PO DAILY [facility] Last Admin: 08/10/17 11:12 Dose: 100 mg Montelukast Sodium (Singulair) 10 mg PO QPM [facility] Morphine Sulfate (Morphine) 1 mg IVP Q3 [facility] Last Admin: 08/10/17 11:58 Dose: 1 mg Ondansetron HCl (Zofran Inj) 4 mg IVP Q6 PRN PRN Reason: Nausea/Vomiting Pantoprazole Sodium (Protonix Ec Tab) 40 mg PO DAILY [facility] Last Admin: 08/10/17 11:13 Dose: 40 mg Pneumococcal Polyvalent Vaccine (Pneumovax 23 Vaccine) 0.5 ml IM .ONCE ONE Stop: 08/11/17 10:01 Promethazine HCl (Phenergan Syrup) 12.5 mg PO Q6 PRN PRN Reason: Cough Saliva Substitute (First Magic Mouthwash) 1 ml PO BID [facility] Last Admin: 08/10/17 11:21 Dose: 1 ml Temazepam (Restoril) 30 mg PO HS [facility] Last Admin: 08/09/17 21:31 Dose: 30 mg Tramadol HCl (Ultram) 25 mg PO TID PRN PRN Reason: Pain, moderate (4-7) Last Admin: 08/09/17 17:33 Dose: 25 mg - Labs Labs: 08/10/17 07:55 08/10/17 07:55 PT 12.0 SECONDS (9.7-12.2) 08/09/17 10:03 INR 1.1 08/09/17 10:03 APTT 28 SECONDS (21-34) 08/09/17 10:03 - Additional Findings Additional findings: - Head Exam Head Exam: NORMAL INSPECTION, NORMOCEPHALIC - Eye Exam Eye Exam: EOMI, Normal appearance, PERRL Pupil Exam: NORMAL ACCOMODATION - ENT Exam ENT Exam: Mucous Membranes Moist Additional comments: ORAL THRUSH NOTED ON TONGUE - Neck Exam Neck exam: Positive for: Normal Inspection. Negative for: Lymphadenopathy, Thyromegaly - Respiratory Exam Respiratory Exam: Clear to Auscultation Bilateral, NORMAL BREATHING PATTERN. absent: Decreased Breath Sounds, Wheezes - Cardiovascular Exam Cardiovascular Exam: REGULAR RHYTHM - GI/Abdominal Exam GI & Abdominal Exam: Mass (epigastric area TTP; Incision along lower abdomen and from umbilicus, no significant surrounding erythema. Small amount of pus visible at intersecting point. Tenderness to R sided incision. ), Soft, Tenderness. absent: Distended, Organomegaly - Extremities Exam Extremities exam: Positive for: normal inspection, pedal pulses present. Negative for: pedal edema, tenderness - Back Exam Back exam: NORMAL INSPECTION - Neurological Exam Neurological exam: Alert, CN II-XII Intact, Oriented x3 - Psychiatric Exam Psychiatric exam: Normal Affect, Normal Mood - Skin Skin Exam: Dry, Intact, Normal Color, Warm Assessment and Plan - Assessment and Plan (Free Text) Plan: Intraabdominal Abscess S/P tummy tuck, R inguinal hernia x 2 07/24/17 - Surgeon Dr. Tera Gentile? established [facility] Surgery consulted- Dr. Velasco - help appreciated - pending reccs Afebrile, no leukocytosis or left shift CT abdomen and pelvis 08/09/17: Two subcutaneous fluid collections one above the umbilicus and one below the umbilicus as described above may represent postsurgical seroma or abscess formation.Subcutaneous stranding seen at the anterior abdominal wall likely represent postsurgical or inflammatory changes. Fat containing ventral hernia seen at the level of the umbilicus slightly to the left of the midline measures 2.7 centimeter in the AP diameter and 3.2 centimeter in the transverse diameter. No evidence of acute pathology in the abdomen and pelvis otherwise. F/U BC, UC-negative, WC, vanco trough NS @ 125cc/hr Started on Vancomycin 1gram daily, Zosyn Q6H Tramadol, Morphine 1mg IVP Q3H [facility], Colace PO TID, Zofran PRN Constipation Given miralax and dulcolax Colace PO TID Hx of HTN Continue home medications: HCTZ 12.5 PO daily, Cozaar 100mg PO daily, Norvasc 5mg PO daily Hx of Asthma Continue home medications: Singulair 10mg PO daily Pulm: Dr. Krause Hx of DM Accuchecks A1C-5.4 ISS- Medium Oral Thrush One time dose of Diflucan, magic mouthwash Hx Anxiety/Depression Resumed home medications: Xanax, Restoril and Lexapro Hx of Breast Cancer Currently undergoing Radiation, next session 08/16/17 Strong family history of breast cancer-mother and maternal grandmother of breast cancer 50s Heme/Onc: Dr. [facility] Maintenance Colonoscopy performed this year WNL - father of colon cancer Prophylactic Measures GI PPX: Protonix 40mg IVP daily DVT PPX: SCDs, anticoag held due to possible OR HHD DW Mireya Barriga DO, PGY-1 <Sherman Mariee H - Last Filed: 08/10/17 13:11> Objective - Vital Signs/Intake and Output Vital Signs (last 24 hours): Temp Pulse Resp BP Pulse Ox 98.2 F 72 20 104/68 97 08/10/17 07:30 08/10/17 07:30 08/10/17 07:30 08/10/17 07:30 08/10/17 07:30 - Medications Medications: Current Medications Acetaminophen (Tylenol 325mg Tab) 650 mg PO Q6 PRN PRN Reason: Fever >100.4 F Alprazolam (Xanax) 0.5 mg PO DAILY [facility] Last Admin: 08/10/17 11:13 Dose: 0.5 mg Amlodipine Besylate (Norvasc) 10 mg PO DAILY [facility] Last Admin: 08/10/17 11:13 Dose: 10 mg Docusate Sodium (Colace) 100 mg PO TID [facility] Last Admin: 08/10/17 11:21 Dose: 100 mg Escitalopram Oxalate (Lexapro) 10 mg PO DAILY [facility] Last Admin: 08/10/17 11:13 Dose: 10 mg Hydrochlorothiazide (Microzide) 12.5 mg PO DAILY [facility] Last Admin: 08/10/17 11:13 Dose: 12.5 mg Piperacillin Sod/Tazobactam Sod (Zosyn 3.375 Gm Iv Premix) 3.375 gm in 50 mls @ 100 mls/hr IVPB Q6H [facility] Last Admin: 08/10/17 12:58 Dose: 100 mls/hr Vancomycin/Sodium Chloride (Vancomycin 1 Gm/Ns 200 Ml) 1 gm in 200 mls @ 133.333 mls/hr IVPB Q24H [facility] Stop: 08/15/17 10:01 Last Admin: 08/10/17 11:23 Dose: 133.333 mls/hr Sodium Chloride (Sodium Chloride 0.9%) 1,000 mls @ 125 mls/hr IV .Q8H [facility] Last Admin: 08/10/17 12:56 Dose: 125 mls/hr Insulin Human Regular (Novolin R) 0 unit SC ACHS [facility] PRN Reason: Protocol Last Admin: 08/10/17 11:22 Dose: Not Given Losartan Potassium (Cozaar) 100 mg PO DAILY [facility] Last Admin: 08/10/17 11:12 Dose: 100 mg Montelukast Sodium (Singulair) 10 mg PO QPM [facility] Morphine Sulfate (Morphine) 1 mg IVP Q3 [facility] Last Admin: 08/10/17 11:58 Dose: 1 mg Ondansetron HCl (Zofran Inj) 4 mg IVP Q6 PRN PRN Reason: Nausea/Vomiting Pantoprazole Sodium (Protonix Ec Tab) 40 mg PO DAILY [facility] Last Admin: 08/10/17 11:13 Dose: 40 mg Pneumococcal Polyvalent Vaccine (Pneumovax 23 Vaccine) 0.5 ml IM .ONCE ONE Stop: 08/11/17 10:01 Promethazine HCl (Phenergan Syrup) 12.5 mg PO Q6 PRN PRN Reason: Cough Saliva Substitute (First Magic Mouthwash) 1 ml PO BID [facility] Last Admin: 08/10/17 11:21 Dose: 1 ml Temazepam (Restoril) 30 mg PO HS [facility] Last Admin: 08/09/17 21:31 Dose: 30 mg Tramadol HCl (Ultram) 25 mg PO TID PRN PRN Reason: Pain, moderate (4-7) Last Admin: 08/09/17 17:33 Dose: 25 mg - Labs Labs: 08/10/17 07:55 08/10/17 07:55 PT 12.0 SECONDS (9.7-12.2) 08/09/17 10:03 INR 1.1 08/09/17 10:03 APTT 28 SECONDS (21-34) 08/09/17 10:03 Attending/Attestation - Attestation I have personally seen and examined this patient.: Yes I have fully participated in the care of the patient.: Yes I have reviewed all pertinent clinical information, including history, physical exam and plan: Yes Notes (Text): 08/10/17 13:05 Medical attending: Patient was seen and examined by me, agrees the above note by medical device sales. Unfortunately the patient reports that overnight she had a lot of discomfort. The pain medication that she's been getting as when necessary and so she explains that sometimes she asked for it but it's not given. Sort agitated over to be given scheduled. Were still also waiting on the cultures at this time. The patient remains on IV antibiotics. And were waiting on further surgical recommendations Thank you very much Sherman Mariee
[2017-08-11] MEDS: Piperacill/Tazo 3.375gm in Dex 3.375 GM/50 ML BAG IVPB SCH ×4 (01:02→18:50)
[2017-08-11] MEDS: Sodium Chloride 0.9% 1,000 ML IV SCH ×4 (05:28→20:00)
--- NOTE | 2017-08-11 06:42 | CP.PCM.PN ---
<Cait Montiel - Last Filed: 08/11/17 06:47> Subjective - Date & Time of Evaluation Date of Evaluation: 08/11/17 Time of Evaluation: 06:41 - Subjective Subjective: Progress note for Dr. Mariee Patient seen and examined at bedside. Patient had 3 yellow BMs overnight. Colace changed from Scheduled to PRN for constipation. Patient has no complaints at this time and is doing well. Patient is tolerating abdominal pain but admits to it. No fever, chills, vomiting Objective - Vital Signs/Intake and Output Vital Signs (last 24 hours): Temp Pulse Resp BP Pulse Ox 98.1 F 63 20 105/68 97 08/11/17 04:32 08/11/17 04:35 08/11/17 04:32 08/11/17 04:35 08/11/17 04:32 Intake and Output: 08/10/17 08/11/17 18:59 06:59 Intake Total 615 1000 Balance 615 1000 - Medications Medications: Current Medications Acetaminophen (Tylenol 325mg Tab) 650 mg PO Q6 PRN PRN Reason: Fever >100.4 F Last Admin: 08/10/17 21:39 Dose: 650 mg Alprazolam (Xanax) 0.5 mg PO DAILY [facility] Last Admin: 08/10/17 10:13 Dose: 0.5 mg Amlodipine Besylate (Norvasc) 10 mg PO DAILY [facility] Last Admin: 08/10/17 10:13 Dose: 10 mg Docusate Sodium (Colace) 100 mg PO TID [facility] Last Admin: 08/10/17 18:52 Dose: 100 mg Escitalopram Oxalate (Lexapro) 10 mg PO DAILY [facility] Last Admin: 08/10/17 10:13 Dose: 10 mg Hydrochlorothiazide (Microzide) 12.5 mg PO DAILY [facility] Last Admin: 08/10/17 10:13 Dose: 12.5 mg Piperacillin Sod/Tazobactam Sod (Zosyn 3.375 Gm Iv Premix) 3.375 gm in 50 mls @ 100 mls/hr IVPB Q6H [facility] Last Admin: 08/11/17 01:02 Dose: 100 mls/hr Vancomycin/Sodium Chloride (Vancomycin 1 Gm/Ns 200 Ml) 1 gm in 200 mls @ 133.333 mls/hr IVPB Q24H [facility] Stop: 08/15/17 10:01 Last Admin: 08/10/17 11:23 Dose: 133.333 mls/hr Sodium Chloride (Sodium Chloride 0.9%) 1,000 mls @ 125 mls/hr IV .Q8H [facility] Last Admin: 08/11/17 05:28 Dose: 125 mls/hr Insulin Human Regular (Novolin R) 0 unit SC ACHS [facility] PRN Reason: Protocol Last Admin: 08/10/17 21:30 Dose: Not Given Losartan Potassium (Cozaar) 100 mg PO DAILY [facility] Last Admin: 08/10/17 10:12 Dose: 100 mg Montelukast Sodium (Singulair) 10 mg PO QPM [facility] Last Admin: 08/10/17 18:52 Dose: 10 mg Morphine Sulfate (Morphine) 1 mg IVP Q3 [facility] Last Admin: 08/11/17 04:05 Dose: 1 mg Ondansetron HCl (Zofran Inj) 4 mg IVP Q6 PRN PRN Reason: Nausea/Vomiting Pantoprazole Sodium (Protonix Ec Tab) 40 mg PO DAILY [facility] Last Admin: 08/10/17 11:13 Dose: 40 mg Pneumococcal Polyvalent Vaccine (Pneumovax 23 Vaccine) 0.5 ml IM .ONCE ONE Stop: 08/11/17 10:01 Promethazine HCl (Phenergan Syrup) 12.5 mg PO Q6 PRN PRN Reason: Cough Saliva Substitute (First Magic Mouthwash) 1 ml PO BID [facility] Last Admin: 08/10/17 19:21 Dose: 1 ml Temazepam (Restoril) 30 mg PO HS [facility] Last Admin: 08/10/17 21:09 Dose: 30 mg Tramadol HCl (Ultram) 25 mg PO TID PRN PRN Reason: Pain, moderate (4-7) Last Admin: 08/09/17 17:33 Dose: 25 mg - Labs Labs: 08/10/17 07:55 08/10/17 07:55 PT 12.0 SECONDS (9.7-12.2) 08/09/17 10:03 INR 1.1 08/09/17 10:03 APTT 28 SECONDS (21-34) 08/09/17 10:03 - Constitutional Appears: Non-toxic - Head Exam Head Exam: NORMAL INSPECTION - Eye Exam Eye Exam: EOMI, Normal appearance - ENT Exam ENT Exam: Mucous Membranes Moist - Neck Exam Neck Exam: Full ROM - Respiratory Exam Respiratory Exam: NORMAL BREATHING PATTERN. absent: Accessory Muscle Use - Cardiovascular Exam Cardiovascular Exam: REGULAR RHYTHM. absent: Bradycardia, Tachycardia - GI/Abdominal Exam GI & Abdominal Exam: Soft, Tenderness - Extremities Exam Extremities Exam: Full ROM - Neurological Exam Neurological Exam: Alert - Psychiatric Exam Psychiatric exam: Normal Affect, Normal Mood Assessment and Plan - Assessment and Plan (Free Text) Assessment: Intraabdominal Abscess S/P tummy tuck, R inguinal hernia x 2 07/24/17 - Surgeon Dr. Tera Gentile? established [facility] Surgery consult Dr. Velasco: continue warm compresses and antibiotics, assessment 57 y/o F s/p abdominoplasty w/ likely incisional seroma Afebrile, no leukocytosis or left shift 08/09 CT abdomen and pelvis: Two subcutaneous fluid collections one above the umbilicus and one below the umbilicus as described above may represent postsurgical seroma or abscess formation.Subcutaneous stranding seen at the anterior abdominal wall likely represent postsurgical or inflammatory changes. Fat containing ventral hernia seen at the level of the umbilicus slightly to the left of the midline measures 2.7 centimeter in the AP diameter and 3.2 centimeter in the transverse diameter. No evidence of acute pathology in the abdomen and pelvis otherwise. F/U BC, UC-negative, WC, vanco trough NS @ 125cc/hr Started on Vancomycin 1gram daily, Zosyn Q6H Tramadol, Morphine 1mg IVP Q3H [facility], Colace PO TID, Zofran PRN Constipation, resolved Given miralax and dulcolax Colace PO TID changed from scheduled to PRN 08/11 Hx of HTN Continue home medications: HCTZ 12.5 PO daily, Cozaar 100mg PO daily, Norvasc 5mg PO daily Hx of Asthma Continue home medications: Singulair 10mg PO daily Pulm: Dr. Krause Hx of DM Accuchecks A1C-5.4 ISS- Medium Oral Thrush One time dose of Diflucan, magic mouthwash Hx Anxiety/Depression Resumed home medications: Xanax, Restoril and Lexapro Hx of Breast Cancer Currently undergoing Radiation, next session 08/16/17 Strong family history of breast cancer-mother and maternal grandmother of breast cancer 50s Heme/Onc: Dr. Pringle [facility] Maintenance Colonoscopy performed this year WNL - father of colon cancer Prophylaxis GI PPX: Protonix 40mg IVP daily DVT PPX: SCDs, anticoag held due to possible OR Diet: Heart Health diet Discussed with Dr. Jaylene Montiel, DO PGY1 <Sherman Mariee - Last Filed: 08/11/17 08:44> Objective - Vital Signs/Intake and Output Vital Signs (last 24 hours): Temp Pulse Resp BP Pulse Ox 98.5 F 65 20 97/64 L 98 08/11/17 07:00 08/11/17 07:00 08/11/17 07:00 08/11/17 07:00 08/11/17 07:00 Intake and Output: 08/11/17 08/11/17 06:59 18:59 Intake Total 1975 Balance 1974 - Medications Medications: Current Medications Acetaminophen (Tylenol 325mg Tab) 650 mg PO Q6 PRN PRN Reason: Fever >100.4 F Last Admin: 08/10/17 21:39 Dose: 650 mg Alprazolam (Xanax) 0.5 mg PO DAILY [facility] Last Admin: 08/10/17 10:13 Dose: 0.5 mg Docusate Sodium (Colace) 100 mg PO TID PRN PRN Reason: Constipation Escitalopram Oxalate (Lexapro) 10 mg PO DAILY [facility] Last Admin: 08/10/17 10:13 Dose: 10 mg Piperacillin Sod/Tazobactam Sod (Zosyn 3.375 Gm Iv Premix) 3.375 gm in 50 mls @ 100 mls/hr IVPB Q6H [facility] Last Admin: 08/11/17 06:52 Dose: 100 mls/hr Vancomycin/Sodium Chloride (Vancomycin 1 Gm/Ns 200 Ml) 1 gm in 200 mls @ 133.333 mls/hr IVPB Q24H [facility] Stop: 08/15/17 10:01 Last Admin: 08/10/17 11:23 Dose: 133.333 mls/hr Sodium Chloride (Sodium Chloride 0.9%) 1,000 mls @ 125 mls/hr IV .Q8H [facility] Last Admin: 08/11/17 05:28 Dose: 125 mls/hr Insulin Human Regular (Novolin R) 0 unit SC ACHS [facility] PRN Reason: Protocol Last Admin: 08/11/17 07:58 Dose: Not Given Montelukast Sodium (Singulair) 10 mg PO QPM [facility] Last Admin: 08/10/17 18:52 Dose: 10 mg Morphine Sulfate (Morphine) 3 mg IVP Q3 [facility] Ondansetron HCl (Zofran Inj) 4 mg IVP Q6 PRN PRN Reason: Nausea/Vomiting Pantoprazole Sodium (Protonix Ec Tab) 40 mg PO DAILY [facility] Last Admin: 08/10/17 11:13 Dose: 40 mg Pneumococcal Polyvalent Vaccine (Pneumovax 23 Vaccine) 0.5 ml IM .ONCE ONE Stop: 08/11/17 10:01 Promethazine HCl (Phenergan Syrup) 12.5 mg PO Q6 PRN PRN Reason: Cough Saliva Substitute (First Magic Mouthwash) 1 ml PO BID [facility] Last Admin: 08/10/17 19:21 Dose: 1 ml Temazepam (Restoril) 30 mg PO HS [facility] Last Admin: 08/10/17 21:09 Dose: 30 mg Tramadol HCl (Ultram) 25 mg PO TID PRN PRN Reason: Pain, moderate (4-7) Last Admin: 08/09/17 17:33 Dose: 25 mg - Labs Labs: 08/11/17 07:17 08/11/17 07:17 PT 12.0 SECONDS (9.7-12.2) 08/09/17 10:03 INR 1.1 08/09/17 10:03 APTT 28 SECONDS (21-34) 08/09/17 10:03 Attending/Attestation - Attestation I have personally seen and examined this patient.: Yes I have fully participated in the care of the patient.: Yes I have reviewed all pertinent clinical information, including history, physical exam and plan: Yes Notes (Text): 08/11/17 08:41 Medical attending: Patient was seen and examined by me. Agree with the above note by the resident The patient reported the pain medication simply was not enough and lasted to short. Her BP was systolic in the 110s. Will hold her norvasc, losartam, and HCTZ and change the morphine to 3mg instead of 1mg. Her WBC is low. 1.7 - I explained to her that would check for HIV thank you Sherman Mariee
[2017-08-11 07:28] LABS: BASO % 0.6 % (0.0-2.0); EOS # 0.1 K/uL (0.0-0.7); EOS % 3.4 % (0.0-4.0); LYMPH # 0.6 K/uL (1.0-4.3); LYMPH % 34.3 % (20.0-40.0); MEAN CELL VOLUME 82.6 fL (81.0-99.0); MEAN CORPUSCULAR HEMOGLOBIN 27.4 pg (27.0-31.0); MEAN CORPUSCULAR HGB CONC 33.2 g/dL (33.0-37.0); MEAN PLATELET VOLUME 8.6 fL (7.2-11.7); MONO # 0.3 K/uL (0.0-0.8); MONO % 18.3 % (0.0-10.0); NRBC % 0.3 % (0.0-2.0)
[2017-08-11 07:47] LABS: WHITE BLOOD COUNT 1.7 K/uL (4.8-10.8)
[2017-08-11] MEDS: (Novolin R) Insulin Human Regular 100 units/ml vial SC SCH ×4 (07:58→23:03)
[2017-08-11 08:10] LABS: CHLORIDE 104 mmol/L (98-107); SODIUM 136 mmol/L (132-148)
[2017-08-11 08:12] LABS: ALB/GLOB RATIO 1.5 (1.0-2.1); AST/SGOT 17 U/L (14-36); BILIRUBIN,TOTAL 0.5 mg/dL (0.2-1.3); CARBON DIOXIDE 24 mmol/L (22-30); GFR AFRICAN-AMERICAN > 60; TOTAL PROTEIN 4.8 g/dL (6.3-8.3)
[2017-08-11 08:13] LABS: ALKALINE PHOSPHATASE 65 U/L (38-126); ALT/SGPT 24 U/L (9-52); BLOOD UREA NITROGEN 7 mg/dL (7-17); CALCIUM 7.8 mg/dl (8.6-10.4); GLUCOSE,RANDOM 84 mg/dL (65-105); PHOSPHOROUS 4.1 mg/dL (2.5-4.5)
[2017-08-11] MEDS ORDERED: Influenza Vaccine 60 mcg/0.5 mL SYR (4YR UP) IM ONE (10:00)
[2017-08-11] MEDS ORDERED: Pneumococcal 23-Valent Vaccine IM ONE (10:00)
[2017-08-11] MEDS: Mag&Al/Simet/Diphen/Lido 237 ML KIT PO SCH ×2 (10:49→18:47)
[2017-08-11] MEDS: Pantoprazole 40 mg EC Tab PO SCH (10:50)
[2017-08-11] MEDS: Vancomycin 1 gm/NS 200 ml 1 GM/200 ML BAG IVPB SCH (10:50)
--- NOTE | 2017-08-11 11:16 | CP.PCM.PN ---
Subjective - Date & Time of Evaluation Date of Evaluation: 08/11/17 Time of Evaluation: 11:15 - Subjective Subjective: Surgery Progress Note for Dr. Velasco HPI: Patient seen and examined at bedside. Doing well. Complaining of pain that keeps her awake at night. Also complaining of some mild drainage from incision site. Patient states she experienced some chills overnight. No other complaints at this time. Objective - Vital Signs/Intake and Output Vital Signs (last 24 hours): Temp Pulse Resp BP Pulse Ox 98.5 F 65 20 97/64 L 98 08/11/17 07:00 08/11/17 07:00 08/11/17 07:00 08/11/17 07:00 08/11/17 07:00 Intake and Output: 08/11/17 08/11/17 06:59 18:59 Intake Total 1975 Balance 1974 - Medications Medications: Current Medications Acetaminophen (Tylenol 325mg Tab) 650 mg PO Q6 PRN PRN Reason: Fever >100.4 F Last Admin: 08/10/17 21:39 Dose: 650 mg Alprazolam (Xanax) 0.5 mg PO DAILY [facility] Last Admin: 08/11/17 10:50 Dose: 0.5 mg Docusate Sodium (Colace) 100 mg PO TID PRN PRN Reason: Constipation Escitalopram Oxalate (Lexapro) 10 mg PO DAILY [facility] Last Admin: 08/11/17 10:49 Dose: 10 mg Piperacillin Sod/Tazobactam Sod (Zosyn 3.375 Gm Iv Premix) 3.375 gm in 50 mls @ 100 mls/hr IVPB Q6H [facility] Last Admin: 08/11/17 06:52 Dose: 100 mls/hr Vancomycin/Sodium Chloride (Vancomycin 1 Gm/Ns 200 Ml) 1 gm in 200 mls @ 133.333 mls/hr IVPB Q24H [facility] Stop: 08/15/17 10:01 Last Admin: 08/11/17 10:50 Dose: 133.333 mls/hr Sodium Chloride (Sodium Chloride 0.9%) 1,000 mls @ 125 mls/hr IV .Q8H [facility] Last Admin: 08/11/17 05:28 Dose: 125 mls/hr Insulin Human Regular (Novolin R) 0 unit SC ACHS [facility] PRN Reason: Protocol Last Admin: 08/11/17 07:58 Dose: Not Given Montelukast Sodium (Singulair) 10 mg PO QPM [facility] Last Admin: 08/10/17 18:52 Dose: 10 mg Morphine Sulfate (Morphine) 3 mg IVP Q3 [facility] Ondansetron HCl (Zofran Inj) 4 mg IVP Q6 PRN PRN Reason: Nausea/Vomiting Oxycodone/Acetaminophen (Percocet 5/325 Mg Tab) 1 tab PO Q6H PRN PRN Reason: Pain, severe (8-10) Stop: 08/14/17 11:08 Pantoprazole Sodium (Protonix Ec Tab) 40 mg PO DAILY [facility] Last Admin: 08/11/17 10:50 Dose: 40 mg Promethazine HCl (Phenergan Syrup) 12.5 mg PO Q6 PRN PRN Reason: Cough Saliva Substitute (First Magic Mouthwash) 1 ml PO BID [facility] Last Admin: 08/11/17 10:49 Dose: 1 ml Temazepam (Restoril) 30 mg PO HS [facility] Last Admin: 08/10/17 21:09 Dose: 30 mg Tramadol HCl (Ultram) 25 mg PO TID PRN PRN Reason: Pain, moderate (4-7) Last Admin: 08/09/17 17:33 Dose: 25 mg - Labs Labs: 08/11/17 07:17 08/11/17 07:17 PT 12.0 SECONDS (9.7-12.2) 08/09/17 10:03 INR 1.1 08/09/17 10:03 APTT 28 SECONDS (21-34) 08/09/17 10:03 - Constitutional Appears: Well, Non-toxic, No Acute Distress - Head Exam Head Exam: NORMAL INSPECTION - Eye Exam Eye Exam: EOMI Pupil Exam: NORMAL ACCOMODATION - ENT Exam ENT Exam: Mucous Membranes Moist - Respiratory Exam Respiratory Exam: Clear to Ausculation Bilateral, NORMAL BREATHING PATTERN - Cardiovascular Exam Cardiovascular Exam: REGULAR RHYTHM - GI/Abdominal Exam GI & Abdominal Exam: Soft, Normal Bowel Sounds. absent: Distended, Tenderness Additional comments: No current drainage from incision. dressing is clean, dry, and intact. No evidence of infection - Exam Exam: absent: Scrotal Swelling - Extremities Exam Extremities Exam: absent: Joint Swelling, Tenderness - Back Exam Back Exam: absent: CVA tenderness (L), CVA tenderness (R) - Neurological Exam Neurological Exam: Alert, Awake, Oriented x3 - Psychiatric Exam Psychiatric exam: Normal Affect, Normal Mood - Skin Skin Exam: Dry, Intact, Normal Color, Warm Assessment and Plan - Assessment and Plan (Free Text) Assessment: 57F W/ abdominal seroma Plan: * no surgical intervention needed at this time * Pain control * changed meds to percocet 5/325mg 1 Tab Q4 * recommend follow up with original surgeon to manage seroma electively. * Further reccs per Dr. Krista Recio PGY1
[2017-08-11] MEDS: Morphine 4 MG/ML VIAL IVP SCH ×5 (11:18→22:00)
[2017-08-11] MEDS: Oxycodone/Acetaminophen 5/325 mg Tab PO PRN ×2 (14:56→23:10)
[2017-08-12] MEDS: Sodium Chloride 0.9% 1,000 ML IV SCH ×6 (00:34→22:22)
[2017-08-12] MEDS: Piperacill/Tazo 3.375gm in Dex 3.375 GM/50 ML BAG IVPB SCH ×4 (00:34→19:58)
[2017-08-12] MEDS: Morphine 4 MG/ML VIAL IVP SCH ×8 (00:46→22:00)
--- NOTE | 2017-08-12 06:54 | CP.PCM.PN ---
Addendum entered and electronically signed by Cait Montiel DO 08/12/17 08:03: please disregard the physical exam Physical exam Constitutional Appears: Non-toxic - Head Exam Head Exam: NORMAL INSPECTION - Eye Exam Eye Exam: EOMI, Normal appearance - ENT Exam ENT Exam: Mucous Membranes Moist - Neck Exam Neck Exam: Full ROM - Respiratory Exam Respiratory Exam: NORMAL BREATHING PATTERN. absent: Accessory Muscle Use - Cardiovascular Exam Cardiovascular Exam: REGULAR RHYTHM. absent: Bradycardia, Tachycardia - GI/Abdominal Exam GI & Abdominal Exam: Soft, Tenderness to palpation, erythema noted at site of previous incision. - Extremities Exam Extremities Exam: Full ROM - Neurological Exam Neurological Exam: Alert - Psychiatric Exam Psychiatric exam: Normal Affect, Normal Mood Original Note: <Cait Montiel - Last Filed: 08/12/17 08:00> Subjective - Date & Time of Evaluation Date of Evaluation: 08/12/17 Time of Evaluation: 06:54 - Subjective Subjective: Progress note for Dr. Mariee Patient seen and examined at bedside. Patient had an episode of low blood pressure overnight which normalized. No other acute events overnight. Patient has no complaints Objective - Vital Signs/Intake and Output Vital Signs (last 24 hours): Temp Pulse Resp BP Pulse Ox 98.2 F 71 20 101/60 97 08/12/17 04:10 08/12/17 04:10 08/12/17 04:10 08/12/17 04:10 08/11/17 23:40 Intake and Output: 08/11/17 08/12/17 18:59 06:59 Intake Total 1480 1000 Balance 1480 1000 - Medications Medications: Current Medications Acetaminophen (Tylenol 325mg Tab) 650 mg PO Q6 PRN PRN Reason: Fever >100.4 F Last Admin: 08/10/17 21:39 Dose: 650 mg Alprazolam (Xanax) 0.5 mg PO DAILY [facility] Last Admin: 08/11/17 10:50 Dose: 0.5 mg Docusate Sodium (Colace) 100 mg PO TID PRN PRN Reason: Constipation Last Admin: 08/11/17 18:48 Dose: 100 mg Escitalopram Oxalate (Lexapro) 10 mg PO DAILY [facility] Last Admin: 08/11/17 10:49 Dose: 10 mg Piperacillin Sod/Tazobactam Sod (Zosyn 3.375 Gm Iv Premix) 3.375 gm in 50 mls @ 100 mls/hr IVPB Q6H [facility] Last Admin: 08/12/17 06:33 Dose: 100 mls/hr Vancomycin/Sodium Chloride (Vancomycin 1 Gm/Ns 200 Ml) 1 gm in 200 mls @ 133.333 mls/hr IVPB Q24H [facility] Stop: 08/15/17 10:01 Last Admin: 08/11/17 10:50 Dose: 133.333 mls/hr Sodium Chloride (Sodium Chloride 0.9%) 1,000 mls @ 125 mls/hr IV .Q8H [facility] Last Admin: 08/12/17 00:34 Dose: 125 mls/hr Insulin Human Regular (Novolin R) 0 unit SC ACHS [facility] PRN Reason: Protocol Last Admin: 08/11/17 23:03 Dose: Not Given Montelukast Sodium (Singulair) 10 mg PO QPM [facility] Last Admin: 08/11/17 18:49 Dose: 10 mg Morphine Sulfate (Morphine) 3 mg IVP Q3 [facility] Last Admin: 08/12/17 04:13 Dose: 3 mg Ondansetron HCl (Zofran Inj) 4 mg IVP Q6 PRN PRN Reason: Nausea/Vomiting Oxycodone/Acetaminophen (Percocet 5/325 Mg Tab) 1 tab PO Q6H PRN PRN Reason: Pain, severe (8-10) Stop: 08/14/17 11:08 Last Admin: 08/11/17 23:10 Dose: 1 tab Pantoprazole Sodium (Protonix Ec Tab) 40 mg PO DAILY [facility] Last Admin: 08/11/17 10:50 Dose: 40 mg Promethazine HCl (Phenergan Syrup) 12.5 mg PO Q6 PRN PRN Reason: Cough Saliva Substitute (First Magic Mouthwash) 1 ml PO BID [facility] Last Admin: 08/11/17 18:47 Dose: 1 ml Temazepam (Restoril) 30 mg PO HS [facility] Last Admin: 08/11/17 23:03 Dose: 30 mg Tramadol HCl (Ultram) 25 mg PO TID PRN PRN Reason: Pain, moderate (4-7) Last Admin: 08/09/17 17:33 Dose: 25 mg - Labs Labs: 08/11/17 07:17 08/11/17 07:17 PT 12.0 SECONDS (9.7-12.2) 08/09/17 10:03 INR 1.1 08/09/17 10:03 APTT 28 SECONDS (21-34) 08/09/17 10:03 - Constitutional Appears: Older Than Stated Age, Cachectic - Head Exam Head Exam: NORMAL INSPECTION - Eye Exam Eye Exam: EOMI, Normal appearance - ENT Exam ENT Exam: Mucous Membranes Moist - Respiratory Exam Respiratory Exam: NORMAL BREATHING PATTERN. absent: Accessory Muscle Use, Respiratory Distress - Cardiovascular Exam Cardiovascular Exam: REGULAR RHYTHM, +S1, +S2 - GI/Abdominal Exam GI & Abdominal Exam: Soft, Tenderness - Extremities Exam Extremities Exam: absent: Pedal Edema - Neurological Exam Neurological Exam: Awake - Psychiatric Exam Psychiatric exam: Flat Affect - Skin Skin Exam: Dry, Intact Assessment and Plan - Assessment and Plan (Free Text) Assessment: Intraabdominal Abscess S/P tummy tuck, R inguinal hernia x 2 07/24/17 - Surgeon Dr. Tera Gentile? established [facility] Surgery consult Dr. Velasco: continue warm compresses and antibiotics, assessment 57 y/o F s/p abdominoplasty w/ likely incisional seroma Afebrile, no leukocytosis or left shift 08/09 CT abdomen and pelvis: Two subcutaneous fluid collections one above the umbilicus and one below the umbilicus as described above may represent postsurgical seroma or abscess formation.Subcutaneous stranding seen at the anterior abdominal wall likely represent postsurgical or inflammatory changes. Fat containing ventral hernia seen at the level of the umbilicus slightly to the left of the midline measures 2.7 centimeter in the AP diameter and 3.2 centimeter in the transverse diameter. No evidence of acute pathology in the abdomen and pelvis otherwise. F/U BC, UC-negative, WC, vanco trough NS @ 125cc/hr Started on Vancomycin 1gram daily, Zosyn Q6H Tramadol, Morphine 1mg IVP Q3H [facility], Colace PO TID, Zofran PRN 08/11 Morphine increased to 3mg 08/[address] Velasco: f/u with original surgeon to manage seroma electively. no surgical intervention at this time. pain medications Percocet 5/325 Q6H PRN Pain Patient has Tramadol 25 PO TID PRN Constipation, resolved Given miralax and dulcolax Colace PO TID changed from scheduled to PRN 08/11 low WBC 08/11 WBC 1.7 f/u HIV test Hx of HTN home medications: HCTZ 12.5 PO daily, Cozaar 100mg PO daily, Norvasc 5mg PO daily, held 08/11 BP in 110s Norvasc, losartan, HCTZ held d/t low systolic BP Hx of Asthma Continue home medications: Singulair 10mg PO daily Pulm: Dr. Krause Hx of DM Accuchecks A1C-5.4 ISS- Medium Oral Thrush One time dose of Diflucan, magic mouthwash Hx Anxiety/Depression Resumed home medications: Xanax, Restoril and Lexapro Hx of Breast Cancer Currently undergoing Radiation, next session 08/16/17 Strong family history of breast cancer-mother and maternal grandmother of breast cancer 50s Heme/Onc: Dr. Pringle [facility] Maintenance Colonoscopy performed this year WNL - father of colon cancer Prophylaxis GI PPX: Protonix 40mg IVP daily DVT PPX: SCDs, anticoag held due to possible OR Diet: Heart Health diet Discussed with Dr. Jaylene Montiel, DO PGY1 <Sherman Mariee H - Last Filed: 08/12/17 08:34> Objective - Vital Signs/Intake and Output Vital Signs (last 24 hours): Temp Pulse Resp BP Pulse Ox 98.7 F 71 20 112/69 100 08/12/17 08:10 08/12/17 08:10 08/12/17 08:10 08/12/17 08:10 08/12/17 08:10 Intake and Output: 08/12/17 08/12/17 06:59 18:59 Intake Total 1000 Balance 1000 - Medications Medications: Current Medications Acetaminophen (Tylenol 325mg Tab) 650 mg PO Q6 PRN PRN Reason: Fever >100.4 F Last Admin: 08/10/17 21:39 Dose: 650 mg Alprazolam (Xanax) 0.5 mg PO DAILY [facility] Last Admin: 08/11/17 10:50 Dose: 0.5 mg Docusate Sodium (Colace) 100 mg PO TID PRN PRN Reason: Constipation Last Admin: 08/11/17 18:48 Dose: 100 mg Escitalopram Oxalate (Lexapro) 10 mg PO DAILY [facility] Last Admin: 08/11/17 10:49 Dose: 10 mg Piperacillin Sod/Tazobactam Sod (Zosyn 3.375 Gm Iv Premix) 3.375 gm in 50 mls @ 100 mls/hr IVPB Q6H [facility] Last Admin: 08/12/17 06:33 Dose: 100 mls/hr Vancomycin/Sodium Chloride (Vancomycin 1 Gm/Ns 200 Ml) 1 gm in 200 mls @ 133.333 mls/hr IVPB Q24H [facility] Stop: 08/15/17 10:01 Last Admin: 08/11/17 10:50 Dose: 133.333 mls/hr Sodium Chloride (Sodium Chloride 0.9%) 1,000 mls @ 125 mls/hr IV .Q8H [facility] Last Admin: 08/12/17 04:00 Dose: Not Given Insulin Human Regular (Novolin R) 0 unit SC ACHS [facility] PRN Reason: Protocol Last Admin: 08/12/17 07:14 Dose: Not Given Montelukast Sodium (Singulair) 10 mg PO QPM [facility] Last Admin: 08/11/17 18:49 Dose: 10 mg Morphine Sulfate (Morphine) 3 mg IVP Q3 [facility] Last Admin: 08/12/17 07:00 Dose: 3 mg Ondansetron HCl (Zofran Inj) 4 mg IVP Q6 PRN PRN Reason: Nausea/Vomiting Oxycodone/Acetaminophen (Percocet 5/325 Mg Tab) 1 tab PO Q6H PRN PRN Reason: Pain, severe (8-10) Stop: 08/14/17 11:08 Last Admin: 08/11/17 23:10 Dose: 1 tab Pantoprazole Sodium (Protonix Ec Tab) 40 mg PO DAILY [facility] Last Admin: 08/11/17 10:50 Dose: 40 mg Promethazine HCl (Phenergan Syrup) 12.5 mg PO Q6 PRN PRN Reason: Cough Saliva Substitute (First Magic Mouthwash) 1 ml PO BID [facility] Last Admin: 08/11/17 18:47 Dose: 1 ml Temazepam (Restoril) 30 mg PO HS [facility] Last Admin: 08/11/17 23:03 Dose: 30 mg Tramadol HCl (Ultram) 25 mg PO TID PRN PRN Reason: Pain, moderate (4-7) Last Admin: 08/09/17 17:33 Dose: 25 mg - Labs Labs: 08/11/17 07:17 08/11/17 07:17 PT 12.0 SECONDS (9.7-12.2) 08/09/17 10:03 INR 1.1 08/09/17 10:03 APTT 28 SECONDS (21-34) 08/09/17 10:03 Attending/Attestation - Attestation I have personally seen and examined this patient.: Yes I have fully participated in the care of the patient.: Yes I have reviewed all pertinent clinical information, including history, physical exam and plan: Yes Notes (Text): 08/12/17 08:29 Medical Attending: Patient was seen and examined by me. Agree with the above note by the resident. Today the patient reported pain was better controlled than last day. I had upped her morphine to 3mg IV Q3. Also holding some of her BP medications as well Pending AM labs at this moment. The wound cultures returned for +enteroccocus today and it is sensitive to many abx including the vancomycin that she is already on at this time. Also returned and was positive for cornybacterium as well. At this moment surgery is not planning on interventions. As mentioned previously concern about the very low WBC and we are pending HIV result. thank you Sherman Mariee
[2017-08-12] MEDS: (Novolin R) Insulin Human Regular 100 units/ml vial SC SCH ×4 (07:14→22:19)
[2017-08-12 08:53] LABS: BASO % 0.3 % (0.0-2.0); EOS # 0.1 K/uL (0.0-0.7); EOS % 3.5 % (0.0-4.0); HEMATOCRIT 28.2 % (34.0-47.0); LYMPH # 0.6 K/uL (1.0-4.3); LYMPH % 22.1 % (20.0-40.0); MEAN CORPUSCULAR HEMOGLOBIN 27.4 pg (27.0-31.0); MEAN PLATELET VOLUME 9.1 fL (7.2-11.7); MONO # 0.3 K/uL (0.0-0.8); MONO % 13.3 % (0.0-10.0); NRBC % 0.3 % (0.0-2.0); RED CELL DISTRIBUTION WIDTH 14.4 % (11.5-14.5); WHITE BLOOD COUNT 2.5 K/uL (4.8-10.8)
[2017-08-12 09:18] LABS: CHLORIDE 103 mmol/L (98-107); POTASSIUM 3.8 mmol/L (3.6-5.2); SODIUM 134 mmol/L (132-148)
[2017-08-12 09:20] LABS: ALKALINE PHOSPHATASE 96 U/L (38-126); AST/SGOT 56 U/L (14-36); BILIRUBIN,TOTAL 0.4 mg/dL (0.2-1.3); CARBON DIOXIDE 26 mmol/L (22-30); GFR AFRICAN-AMERICAN > 60; TOTAL PROTEIN 5.9 g/dL (6.3-8.3)
[2017-08-12 09:21] LABS: ALT/SGPT 51 U/L (9-52); BLOOD UREA NITROGEN 7 mg/dL (7-17); CALCIUM 8.2 mg/dl (8.6-10.4); GLUCOSE,RANDOM 75 mg/dL (65-105); MAGNESIUM 1.9 mg/dL (1.6-2.3); PHOSPHOROUS 3.9 mg/dL (2.5-4.5)
[2017-08-12] MEDS: oxyCODONE 10 mg ER Tab (oxyCONTIN) PO SCH ×2 (10:28→22:18)
[2017-08-12] MEDS: Pantoprazole 40 mg EC Tab PO SCH (10:29)
[2017-08-12] MEDS: Vancomycin 1 gm/NS 200 ml 1 GM/200 ML BAG IVPB SCH (10:31)
[2017-08-12] MEDS: Mag&Al/Simet/Diphen/Lido 237 ML KIT PO SCH ×2 (10:35→22:17)
[2017-08-12] MEDS: Oxycodone/Acetaminophen 5/325 mg Tab PO PRN (13:11)
[2017-08-12 20:57] LABS: RBC URINE 1 /hpf (0-3); URINE BILIRUBIN NEGATIVE (NEGATIVE); URINE BLOOD 1+ (NEGATIVE); URINE COLOR Colorless (YELLOW); URINE GLUCOSE (UA) NORMAL (Normal); URINE KETONE NEGATIVE (NEGATIVE); URINE LEUKOCYTE ESTERASE NEG Leu/uL (Negative); URINE PROTEIN NEGATIVE (NEGATIVE); URINE UROBILINOGEN NORMAL mg/dL (0.2-1.0); WBC URINE < 1 /hpf (0-5)
[2017-08-12] MEDS ORDERED: POLYETHYLENE GLYCOL 3350 17 GM/Dose PACKET PO ONE (21:00)
[2017-08-13] MEDS: Piperacill/Tazo 3.375gm in Dex 3.375 GM/50 ML BAG IVPB SCH ×4 (00:28→18:09)
[2017-08-13] MEDS: Morphine 4 MG/ML VIAL IVP SCH ×4 (00:36→10:00)
[2017-08-13] MEDS: Oxycodone/Acetaminophen 5/325 mg Tab PO PRN ×2 (04:02→17:45)
[2017-08-13] MEDS: Sodium Chloride 0.9% 1,000 ML IV SCH ×4 (06:47→20:44)
[2017-08-13] MEDS: (Novolin R) Insulin Human Regular 100 units/ml vial SC SCH ×4 (08:06→21:40)
[2017-08-13 08:07] LABS: BASO % 0.3 % (0.0-2.0); EOS # 0.1 K/uL (0.0-0.7); HEMATOCRIT 27.7 % (34.0-47.0); LYMPH # 0.5 K/uL (1.0-4.3); LYMPH % 25.5 % (20.0-40.0); MEAN CELL VOLUME 82.9 fL (81.0-99.0); MEAN CORPUSCULAR HEMOGLOBIN 27.3 pg (27.0-31.0); MEAN CORPUSCULAR HGB CONC 32.9 g/dL (33.0-37.0); MEAN PLATELET VOLUME 8.4 fL (7.2-11.7); MONO # 0.4 K/uL (0.0-0.8); MONO % 21.2 % (0.0-10.0); NRBC % 0.6 % (0.0-2.0); PLATELET COUNT 122 K/uL (130-400); RED CELL DISTRIBUTION WIDTH 14.1 % (11.5-14.5)
[2017-08-13 08:08] LABS: CHLORIDE 102 mmol/L (98-107)
[2017-08-13 08:09] LABS: POTASSIUM 3.9 mmol/L (3.6-5.2); SODIUM 134 mmol/L (132-148)
[2017-08-13 08:11] LABS: ALB/GLOB RATIO 1.5 (1.0-2.1); ALKALINE PHOSPHATASE 75 U/L (38-126); ALT/SGPT 32 U/L (9-52); AST/SGOT 21 U/L (14-36); BILIRUBIN,TOTAL 0.4 mg/dL (0.2-1.3); BLOOD UREA NITROGEN 9 mg/dL (7-17); CARBON DIOXIDE 26 mmol/L (22-30); GFR AFRICAN-AMERICAN > 60; GLUCOSE,RANDOM 85 mg/dL (65-105); TOTAL PROTEIN 4.7 g/dL (6.3-8.3)
[2017-08-13 08:12] LABS: CALCIUM 7.7 mg/dl (8.6-10.4); MAGNESIUM 1.9 mg/dL (1.6-2.3)
--- NOTE | 2017-08-13 08:36 | CP.PCM.PN ---
<Francisco JavierEdgardo R - Last Filed: 08/13/17 15:07> Subjective - Date & Time of Evaluation Date of Evaluation: 08/13/17 Time of Evaluation: 08:24 - Subjective Subjective: Patient seen and examined this AM. She complained of periumbilical abdominal pain 4/10 and right flank pain 4/10. She also says she's been constipated with her last bowel movement 5 days ago. She had no other complaints. She understood that her pain medications could not be given at times due to her low BP. She says she eating well and sleeping well. She denies all other prompts on review of systems. Objective - Vital Signs/Intake and Output Vital Signs (last 24 hours): Temp Pulse Resp BP Pulse Ox 98.2 F 75 20 92/61 L 96 08/13/17 04:00 08/13/17 06:45 08/13/17 04:00 08/13/17 06:45 08/12/17 23:35 Intake and Output: 08/13/17 08/13/17 06:59 18:59 Intake Total 2375 Balance 2375 - Medications Medications: Current Medications Acetaminophen (Tylenol 325mg Tab) 650 mg PO Q6 PRN PRN Reason: Fever >100.4 F Last Admin: 08/10/17 21:39 Dose: 650 mg Alprazolam (Xanax) 0.5 mg PO DAILY [facility] Last Admin: 08/12/17 10:29 Dose: 0.5 mg Docusate Sodium (Colace) 100 mg PO TID PRN PRN Reason: Constipation Last Admin: 08/12/17 19:57 Dose: 100 mg Escitalopram Oxalate (Lexapro) 10 mg PO DAILY [facility] Last Admin: 08/12/17 10:29 Dose: 10 mg Piperacillin Sod/Tazobactam Sod (Zosyn 3.375 Gm Iv Premix) 3.375 gm in 50 mls @ 100 mls/hr IVPB Q6H [facility] Last Admin: 08/13/17 06:46 Dose: 100 mls/hr Vancomycin/Sodium Chloride (Vancomycin 1 Gm/Ns 200 Ml) 1 gm in 200 mls @ 133.333 mls/hr IVPB Q24H [facility] Stop: 08/15/17 10:01 Last Admin: 08/12/17 10:31 Dose: 133.333 mls/hr Sodium Chloride (Sodium Chloride 0.9%) 1,000 mls @ 125 mls/hr IV .Q8H [facility] Last Admin: 08/13/17 06:47 Dose: 125 mls/hr Insulin Human Regular (Novolin R) 0 unit SC ACHS [facility] PRN Reason: Protocol Last Admin: 08/13/17 08:06 Dose: Not Given Montelukast Sodium (Singulair) 10 mg PO QPM [facility] Last Admin: 08/12/17 19:58 Dose: 10 mg Morphine Sulfate (Morphine) 3 mg IVP Q3 [facility] Last Admin: 08/13/17 06:49 Dose: Not Given Ondansetron HCl (Zofran Inj) 4 mg IVP Q6 PRN PRN Reason: Nausea/Vomiting Last Admin: 08/12/17 20:45 Dose: 4 mg Oxycodone HCl (Oxycontin Extended Release Tab) 10 mg PO Q12 [facility] Stop: 08/15/17 10:01 Last Admin: 08/12/17 22:18 Dose: 10 mg Oxycodone/Acetaminophen (Percocet 5/325 Mg Tab) 1 tab PO Q6H PRN PRN Reason: Pain, severe (8-10) Stop: 08/14/17 11:08 Last Admin: 08/13/17 04:02 Dose: 1 tab Pantoprazole Sodium (Protonix Ec Tab) 40 mg PO DAILY [facility] Last Admin: 08/12/17 10:29 Dose: 40 mg Promethazine HCl (Phenergan Syrup) 12.5 mg PO Q6 PRN PRN Reason: Cough Saliva Substitute (First Magic Mouthwash) 1 ml PO BID [facility] Last Admin: 08/12/17 22:17 Dose: 1 ml Temazepam (Restoril) 30 mg PO HS [facility] Last Admin: 08/12/17 22:19 Dose: 30 mg Tramadol HCl (Ultram) 25 mg PO TID PRN PRN Reason: Pain, moderate (4-7) Last Admin: 08/09/17 17:33 Dose: 25 mg - Labs Labs: 08/13/17 07:53 08/13/17 07:49 PT 12.0 SECONDS (9.7-12.2) 08/09/17 10:03 INR 1.1 08/09/17 10:03 APTT 28 SECONDS (21-34) 08/09/17 10:03 - Constitutional Appears: Well, Non-toxic, No Acute Distress - Head Exam Head Exam: ATRAUMATIC, NORMAL INSPECTION - Eye Exam Eye Exam: EOMI - ENT Exam ENT Exam: Mucous Membranes Moist - Neck Exam Neck Exam: Normal Inspection - Respiratory Exam Respiratory Exam: Clear to Ausculation Bilateral, NORMAL BREATHING PATTERN. absent: Rales, Rhonchi, Wheezes - Cardiovascular Exam Cardiovascular Exam: REGULAR RHYTHM, RRR, +S1, +S2. absent: Bradycardia, Tachycardia - GI/Abdominal Exam GI & Abdominal Exam: Soft, Normal Bowel Sounds. absent: Distended, Firm, Guarding, Tenderness Additional comments: Large transverse suprapubic incision scar from left ASIS to right ASIS midline saggital incision scar from umbilicus to suprapubic region dressing in hypograstric region is c/d/i - Extremities Exam Extremities Exam: Full ROM. absent: Pedal Edema - Neurological Exam Neurological Exam: Alert, Awake, Oriented x3 - Psychiatric Exam Psychiatric exam: Normal Affect, Normal Mood - Skin Skin Exam: Dry, Intact, Normal Color, Warm Assessment and Plan - Assessment and Plan (Free Text) Assessment: Intraabdominal Abscess S/P tummy tuck, R inguinal hernia x 2 07/24/17 - Surgeon Dr. Tera Gentile? established [facility] Surgery consulted, Dr. Velasco - no surgical intervention at this time Wound culture, source abscess 08/09/17: (+) for corynebacterium and enterococcus faecalis Wound culture, source abdomen 08/09/17: (+) for enterococcus faecalis 08/09 CT abdomen and pelvis: Two subcutaneous fluid collections one above the umbilicus and one below the umbilicus as described above may represent postsurgical seroma or abscess formation.Subcutaneous stranding seen at the anterior abdominal wall likely represent postsurgical or inflammatory changes. Fat containing ventral hernia seen at the level of the umbilicus slightly to the left of the midline measures 2.7 centimeter in the AP diameter and 3.2 centimeter in the transverse diameter. No evidence of acute pathology in the abdomen and pelvis otherwise. vancomyscin 1g ivpb q24 started 08/10/17 zosyn 3.375 g ivpb q6h started 08/10/17 morphine 3mg ivp q3 oxycodone 10mg po q12 percocet 1 tab po q6h prn for pain zofran 4mg ivp q6 prn for nausea/vomiting tramadol 25mg po tid prn Constipation, resolved docusate 100mg po tid prn low WBC heme/onc consulted, Dr Raymundo HIV test negative Hx of HTN home medications: HCTZ 12.5 PO daily, Cozaar 100mg PO daily, Norvasc 5mg PO daily, held 08/11 BP in 110s Norvasc, losartan, HCTZ held d/t low systolic BP Hx of Asthma Continue home medications: Singulair 10mg PO daily Pulm: Dr. Krause Hx of DM Accuchecks A1C-5.4 ISS- Medium Oral Thrush, resolved One time dose of Diflucan, magic mouthwash Hx Anxiety/Depression Resumed home medications: Xanax, Restoril and Lexapro Hx of Breast Cancer Currently undergoing Radiation, next session 08/16/17 Strong family history of breast cancer-mother and maternal grandmother of breast cancer 50s Outpatient Heme/Onc: [facility] Maintenance Colonoscopy performed this year WNL - father of colon cancer Prophylaxis GI PPX: Protonix 40mg IVP daily DVT PPX: SCDs, anticoag held due to possible OR Diet: Heart Health diet Fluids: NS at 125 cc/hr <Donis Gavin - Last Filed: 08/13/17 17:27> Objective - Vital Signs/Intake and Output Vital Signs (last 24 hours): Temp Pulse Resp BP Pulse Ox 98.5 F 80 18 96/63 L 97 08/13/17 15:38 08/13/17 15:38 08/13/17 15:38 08/13/17 15:38 08/13/17 15:38 Intake and Output: 08/13/17 08/13/17 06:59 18:59 Intake Total 2375 330 Balance 2375 330 - Medications Medications: Current Medications Acetaminophen (Tylenol 325mg Tab) 650 mg PO Q6 PRN PRN Reason: Fever >100.4 F Last Admin: 08/10/17 21:39 Dose: 650 mg Alprazolam (Xanax) 0.5 mg PO DAILY [facility] Last Admin: 08/13/17 09:19 Dose: 0.5 mg Docusate Sodium (Colace) 100 mg PO TID PRN PRN Reason: Constipation Last Admin: 08/12/17 19:57 Dose: 100 mg Escitalopram Oxalate (Lexapro) 10 mg PO DAILY [facility] Last Admin: 08/13/17 09:19 Dose: 10 mg Piperacillin Sod/Tazobactam Sod (Zosyn 3.375 Gm Iv Premix) 3.375 gm in 50 mls @ 100 mls/hr IVPB Q6H [facility] Last Admin: 08/13/17 13:35 Dose: 100 mls/hr Vancomycin/Sodium Chloride (Vancomycin 1 Gm/Ns 200 Ml) 1 gm in 200 mls @ 133.333 mls/hr IVPB Q24H [facility] Stop: 08/15/17 10:01 Last Admin: 08/13/17 09:21 Dose: 133.333 mls/hr Sodium Chloride (Sodium Chloride 0.9%) 1,000 mls @ 125 mls/hr IV .Q8H [facility] Last Admin: 08/13/17 12:00 Dose: Not Given Insulin Human Regular (Novolin R) 0 unit SC ACHS [facility] PRN Reason: Protocol Last Admin: 08/13/17 12:25 Dose: Not Given Montelukast Sodium (Singulair) 10 mg PO QPM [facility] Last Admin: 08/12/17 19:58 Dose: 10 mg Morphine Sulfate (Morphine) 3 mg IVP Q3 PRN PRN Reason: Pain, severe (8-10) Ondansetron HCl (Zofran Inj) 4 mg IVP Q6 PRN PRN Reason: Nausea/Vomiting Last Admin: 08/12/17 20:45 Dose: 4 mg Oxycodone HCl (Oxycontin Extended Release Tab) 10 mg PO Q12 [facility] Stop: 08/15/17 10:01 Last Admin: 08/13/17 09:19 Dose: 10 mg Oxycodone/Acetaminophen (Percocet 5/325 Mg Tab) 1 tab PO Q6H PRN PRN Reason: Pain, severe (8-10) Stop: 08/14/17 11:08 Last Admin: 08/13/17 04:02 Dose: 1 tab Pantoprazole Sodium (Protonix Ec Tab) 40 mg PO DAILY [facility] Last Admin: 08/13/17 09:19 Dose: 40 mg Promethazine HCl (Phenergan Syrup) 12.5 mg PO Q6 PRN PRN Reason: Cough Saliva Substitute (First Magic Mouthwash) 1 ml PO BID [facility] Last Admin: 08/13/17 09:24 Dose: 1 ml Temazepam (Restoril) 30 mg PO HS [facility] Last Admin: 08/12/17 22:19 Dose: 30 mg Tramadol HCl (Ultram) 25 mg PO TID PRN PRN Reason: Pain, moderate (4-7) Last Admin: 08/13/17 13:42 Dose: 25 mg - Labs Labs: 08/13/17 07:53 08/13/17 07:49 PT 12.0 SECONDS (9.7-12.2) 08/09/17 10:03 INR 1.1 08/09/17 10:03 APTT 28 SECONDS (21-34) 08/09/17 10:03 Attending/Attestation - Attestation I have personally seen and examined this patient.: Yes I have fully participated in the care of the patient.: Yes I have reviewed all pertinent clinical information, including history, physical exam and plan: Yes Notes (Text): This is a 57years old female with history of breast cancer,s/p radiation,HTN, asthma,constipation s/p Tummy tuck was admitted for fever and abdominal wall pain and discharge from surgical site 1.Abdominal wall infection s/p surgery s/p tummy tuck, R inguinal hernia x 2 07/24/17 - Surgeon Dr. Tera Gentile? established [facility] Wound culture, source abscess 08/09/17: (+) for corynebacterium and enterococcus faecalis Wound culture, source abdomen 08/09/17: (+) for enterococcus faecalis 08/09 CT abdomen and pelvis: Two subcutaneous fluid collections r/o abscess follow sugery,continue zosyn and vanco 2.Pancytopenia HIV negative hematology consult 3.Cosntipation 4.HTN 5.asthma 08/13/17 17:23
[2017-08-13 08:38] LABS: EOSINOPHIL 2 % (0-4); NEUTROPHIL 50 % (50-75); TOTAL CELLS COUNTED 50
[2017-08-13] MEDS: oxyCODONE 10 mg ER Tab (oxyCONTIN) PO SCH ×2 (09:19→21:42)
[2017-08-13] MEDS: Pantoprazole 40 mg EC Tab PO SCH (09:19)
[2017-08-13] MEDS: Vancomycin 1 gm/NS 200 ml 1 GM/200 ML BAG IVPB SCH (09:21)
[2017-08-13] MEDS: Mag&Al/Simet/Diphen/Lido 237 ML KIT PO SCH ×2 (09:24→17:47)
[2017-08-13] MEDS: Tramadol 25 mg PO PRN (13:42)
[2017-08-13] MEDS ORDERED: Oxycodone/Acetaminophen 5/325 mg Tab PO PRN (19:47)
[2017-08-13] MEDS: POLYETHYLENE GLYCOL 3350 17 GM/Dose PACKET PO SCH (21:42)
[2017-08-14] MEDS: Morphine 4 MG/ML VIAL IVP PRN ×2 (00:13→04:25)
[2017-08-14] MEDS: Piperacill/Tazo 3.375gm in Dex 3.375 GM/50 ML BAG IVPB SCH ×2 (00:15→06:13)
[2017-08-14] MEDS: Sodium Chloride 0.9% 1,000 ML IV SCH (04:25)
[2017-08-14 06:20] VITALS: RESP 20
[2017-08-14 06:36] VITALS: O2SAT 96
[2017-08-14] MEDS: (Novolin R) Insulin Human Regular 100 units/ml vial SC SCH (07:36)
[2017-08-14 07:48] LABS: BASO % 0.2 % (0.0-2.0); EOS # 0.1 K/uL (0.0-0.7); EOS % 5.1 % (0.0-4.0); HEMATOCRIT 29.2 % (34.0-47.0); LYMPH # 0.6 K/uL (1.0-4.3); LYMPH % 29.7 % (20.0-40.0); MEAN CELL VOLUME 82.1 fL (81.0-99.0); MEAN CORPUSCULAR HEMOGLOBIN 27.5 pg (27.0-31.0); MEAN CORPUSCULAR HGB CONC 33.4 g/dL (33.0-37.0); MONO # 0.3 K/uL (0.0-0.8); MONO % 17.9 % (0.0-10.0); RED CELL DISTRIBUTION WIDTH 14.3 % (11.5-14.5)
[2017-08-14 08:00] LABS: WHITE BLOOD COUNT 1.9 K/uL (4.8-10.8)
[2017-08-14 08:13] LABS: CHLORIDE 102 mmol/L (98-107); POTASSIUM 3.8 mmol/L (3.6-5.2); SODIUM 134 mmol/L (132-148)
[2017-08-14 08:15] VITALS: BP 119/74; PULSE 70; TEMP 99
[2017-08-14 08:15] LABS: BILIRUBIN,TOTAL 0.4 mg/dL (0.2-1.3); GFR AFRICAN-AMERICAN > 60
[2017-08-14 08:16] LABS: ALKALINE PHOSPHATASE 84 U/L (38-126); ALT/SGPT 33 U/L (9-52); AST/SGOT 21 U/L (14-36); BLOOD UREA NITROGEN 8 mg/dL (7-17); CALCIUM 8.3 mg/dl (8.6-10.4); CARBON DIOXIDE 25 mmol/L (22-30); GLUCOSE,RANDOM 82 mg/dL (65-105); TOTAL PROTEIN 6.2 g/dL (6.3-8.3)
[2017-08-14] MEDS: Pantoprazole 40 mg EC Tab PO SCH (09:38)
[2017-08-14] MEDS: oxyCODONE 10 mg ER Tab (oxyCONTIN) PO SCH (09:38)
[2017-08-14] MEDS: POLYETHYLENE GLYCOL 3350 17 GM/Dose PACKET PO SCH (09:39)
[2017-08-14] MEDS: Vancomycin 1 gm/NS 200 ml 1 GM/200 ML BAG IVPB SCH (09:39)
[2017-08-14] MEDS: Mag&Al/Simet/Diphen/Lido 237 ML KIT PO SCH (09:39)
[2017-08-14] MEDS ORDERED: Promethazine/Cod 6.25mg-10mg/5ml Syr UD PO PRN (13:45)
--- NOTE | 2017-08-14 16:42 | CP.PCM.CON ---
History of Present Illness - History of Present Illness History of Present Illness: 57 yo woman with a history of breast cancer, admitted with abdominal pain, s,p abdminoplasty and hernia repair at [facility], 2 weeks ago, came in with c/o purulent discharge from [facility] with fever and chills. Seen by surgery and started on iv antibiotics The patient was also found to have pancytopenia, low WBC count, denies fevers, nt. sweats, chills since being in the hospital. PMHx- Significant for history of breast cancer currently undergoing breast radiation on PO arimidex. She also has a history of gastric bypass, says she has had low blood counts since then on B12 and ? iron tablets Past Patient History - Infectious Disease Hx of Infectious Diseases: None - Past Medical History & Family History Past Medical History?: Yes - Past Social History Smoking Status: Never Smoked - CARDIAC Hx Hypercholesterolemia: Yes Hx Hypertension: Yes - PULMONARY Hx Asthma: Yes Hx Emphysema: Yes Hx Pneumonia: Yes Hx Sleep Apnea: Yes - NEUROLOGICAL Hx Neurological Disorder: No - HEENT Hx HEENT Problems: No - RENAL Hx Chronic Kidney Disease: No Hx Kidney Stones: Yes - ENDOCRINE/METABOLIC Hx Endocrine Disorders: Yes Hx Diabetes Mellitus Type 2: Yes - HEMATOLOGICAL/ONCOLOGICAL Hx Blood Disorders: Yes Hx Cancer: Yes (LT BREAST CA) - INTEGUMENTARY Hx Dermatological Problems: No - MUSCULOSKELETAL/RHEUMATOLOGICAL Hx Arthritis: Yes - GASTROINTESTINAL Hx Gastrointestinal Disorders: No - GENITOURINARY/GYNECOLOGICAL Hx Genitourinary Disorders: No - PSYCHIATRIC Hx Substance Use: No - SURGICAL HISTORY Hx Cholecystectomy: Yes - ANESTHESIA Hx Anesthesia: Yes Hx Anesthesia Reactions: No Hx Malignant Hyperthermia: No Meds Allergies/Adverse Reactions: Allergies Allergy/AdvReac Type Severity Reaction Status Date / Time No Known Allergies Allergy Verified 08/09/17 09:09 - Medications Medications: Current Medications Acetaminophen (Tylenol 325mg Tab) 650 mg PO Q6 PRN PRN Reason: Fever >100.4 F Last Admin: 08/10/17 21:39 Dose: 650 mg Alprazolam (Xanax) 0.5 mg PO DAILY [facility] Last Admin: 08/14/17 09:38 Dose: 0.5 mg Docusate Sodium (Colace) 100 mg PO TID [facility] Last Admin: 08/14/17 13:31 Dose: 100 mg Escitalopram Oxalate (Lexapro) 10 mg PO DAILY [facility] Last Admin: 08/14/17 09:38 Dose: 10 mg Vancomycin/Sodium Chloride (Vancomycin 1 Gm/Ns 200 Ml) 1 gm in 200 mls @ 133.333 mls/hr IVPB Q24H [facility] Stop: 08/15/17 10:01 Last Admin: 08/14/17 09:39 Dose: 133.333 mls/hr Sodium Chloride (Sodium Chloride 0.9%) 1,000 mls @ 125 mls/hr IV .Q8H [facility] Last Admin: 08/14/17 04:25 Dose: 125 mls/hr Insulin Human Regular (Novolin R) 0 unit SC ACHS [facility] PRN Reason: Protocol Last Admin: 08/14/17 07:36 Dose: Not Given Montelukast Sodium (Singulair) 10 mg PO QPM [facility] Last Admin: 08/13/17 17:46 Dose: 10 mg Ondansetron HCl (Zofran Inj) 4 mg IVP Q6 PRN PRN Reason: Nausea/Vomiting Last Admin: 08/14/17 08:48 Dose: 4 mg Pantoprazole Sodium (Protonix Ec Tab) 40 mg PO DAILY [facility] Last Admin: 08/14/17 09:38 Dose: 40 mg Polyethylene Glycol (Miralax) 17 gm PO DAILY [facility] Last Admin: 08/14/17 09:39 Dose: 17 gm Promethazine HCl/Codeine (Phenergan/Codeine Oral Syrup) 12.5 ml PO Q6 PRN PRN Reason: Cough Saliva Substitute (First Magic Mouthwash) 1 ml PO BID [facility] Last Admin: 08/14/17 09:39 Dose: 1 ml Temazepam (Restoril) 30 mg PO HS [facility] Last Admin: 08/13/17 21:42 Dose: 30 mg Results - Vital Signs Recent Vital Signs: Last Vital Signs Temp 99.0 F 08/14/17 08:13 Pulse 70 08/14/17 08:13 Resp 20 08/14/17 08:13 BP 119/74 08/14/17 08:13 Pulse Ox 96 08/14/17 08:13 - Labs Result Diagrams: 08/14/17 07:05 08/14/17 07:05 Labs: Laboratory Results - last 24 hr 08/13/17 08/13/17 08/14/17 17:16 21:12 06:34 WBC RBC Hgb Hct MCV MCH MCHC RDW Plt Count MPV Neut % (Auto) Lymph % (Auto) Morton % (Auto) Eos % (Auto) Baso % (Auto) Neut # Lymph # Morton # Eos # Baso # ESR Sodium Potassium Chloride Carbon Dioxide Anion Gap BUN Creatinine Est GFR ( Amer) Est GFR (Non-Af Amer) POC Glucose (mg/dL) 92 150 H 101 Random Glucose Calcium Ferritin Total Bilirubin AST ALT Alkaline Phosphatase Total Protein Albumin Globulin Albumin/Globulin Ratio Vitamin B12 Hepatitis A IgM Ab Hep Bs Antigen Hep B Core IgM Ab Hepatitis C Antibody 08/14/17 08/14/17 08/14/17 07:05 07:05 07:05 WBC 1.9 L* RBC 3.56 L Hgb 9.8 L Hct 29.2 L MCV 82.1 MCH 27.5 MCHC 33.4 RDW 14.3 Plt Count 133 MPV 9.0 Neut % (Auto) 47.1 L Lymph % (Auto) 29.7 Morton % (Auto) 17.9 H Eos % (Auto) 5.1 H Baso % (Auto) 0.2 Neut # 0.9 L Lymph # 0.6 L Morton # 0.3 Eos # 0.1 Baso # 0.0 ESR 30 H Sodium 134 Potassium 3.8 Chloride 102 Carbon Dioxide 25 Anion Gap 11 BUN 8 Creatinine 0.7 Est GFR ( Amer) > 60 Est GFR (Non-Af Amer) > 60 POC Glucose (mg/dL) Random Glucose 82 Calcium 8.3 L Ferritin Total Bilirubin 0.4 AST 21 ALT 33 Alkaline Phosphatase 84 Total Protein 6.2 L Albumin 3.1 L Globulin 3.0 Albumin/Globulin Ratio 1.0 Vitamin B12 Hepatitis A IgM Ab Hep Bs Antigen Hep B Core IgM Ab Hepatitis C Antibody 08/14/17 08/14/17 08/14/17 07:05 07:05 12:03 WBC RBC Hgb Hct MCV MCH MCHC RDW Plt Count MPV Neut % (Auto) Lymph % (Auto) Morton % (Auto) Eos % (Auto) Baso % (Auto) Neut # Lymph # Morton # Eos # Baso # ESR Sodium Potassium Chloride Carbon Dioxide Anion Gap BUN Creatinine Est GFR ( Amer) Est GFR (Non-Af Amer) POC Glucose (mg/dL) 101 Random Glucose Calcium Ferritin 31.2 Total Bilirubin AST ALT Alkaline Phosphatase Total Protein Albumin Globulin Albumin/Globulin Ratio Vitamin B12 344 Hepatitis A IgM Ab Negative Hep Bs Antigen Negative Hep B Core IgM Ab Negative Hepatitis C Antibody Negative Assessment & Plan (1) Pancytopenia Assessment and Plan: 57 yo woman with history of breast cancer, on arimidex, found to have pancytopenia, as per patient she has had low blood counts for a while and is being followed by oncologist. Etio of her cytopenias, is multifactorial- nutritional, low iron, ?? infection. If her counts are not better even after the infection is better, she will need a bone marrow biopsy She is insistent on going home today and says that she will follow up with her onc tomorrow. Will hold off on using growth factors for now, she is afebrile with a neutrophil count of [id number]. Continue B12 for now Status: Acute
--- NOTE | 2017-08-14 17:24 | CP.PCM.DIS ---
Provider - Provider Date of Admission: 08/09/17 12:04 Attending physician: Sherman Mariee DO Primary care physician: PMD: Dr Magalys Mead Consults: Surgery - Dr Krista Sales/Onc - Dr Raymundo Time Spent in preparation of Discharge (in minutes): 45 Hospital Course - Lab Results Lab Results: Micro Results 08/09/17 09:45 Blood-Venous Blood Culture - Final NO GROWTH AFTER 5 DAYS 08/09/17 09:45 Blood-Venous Gram Stain - Final TEST NOT PERFORMED 08/09/17 10:15 Blood-Venous Blood Culture - Final NO GROWTH AFTER 5 DAYS 08/09/17 10:15 Blood-Venous Gram Stain - Final TEST NOT PERFORMED 08/09/17 Unknown Abscess - Umbilicus Gram Stain - Final 08/09/17 Unknown Abscess - Umbilicus Wound Culture - Final Corynebacterium Species Enterococcus Faecalis 08/12/17 09:00 Urine,Clean Catch Urine Culture - Final No Growth (<1,000 CFU/ML) 08/09/17 15:00 Abdomen Gram Stain - Final 08/09/17 15:00 Abdomen Wound Culture - Final Enterococcus Faecalis 08/09/17 10:30 Urine,Clean Catch Urine Culture - Final No Growth (<1,000 CFU/ML) Most Recent Lab Values WBC 1.9 K/uL (4.8-10.8) L* 08/14/17 07:05 RBC 3.56 Mil/uL (3.80-5.20) L 08/14/17 07:05 Hgb 9.8 g/dL (11.0-16.0) L 08/14/17 07:05 Hct 29.2 % (34.0-47.0) L 08/14/17 07:05 MCV 82.1 fL (81.0-99.0) 08/14/17 07:05 MCH 27.5 pg (27.0-31.0) 08/14/17 07:05 MCHC 33.4 g/dL (33.0-37.0) 08/14/17 07:05 RDW 14.3 % (11.5-14.5) 08/14/17 07:05 Plt Count 133 K/uL (130-400) 08/14/17 07:05 MPV 9.0 fL (7.2-11.7) 08/14/17 07:05 Neut % (Auto) 47.1 % (50.0-75.0) L 08/14/17 07:05 Lymph % (Auto) 29.7 % (20.0-40.0) 08/14/17 07:05 [place] % (Auto) 17.9 % (0.0-10.0) H 08/14/17 07:05 Eos % (Auto) 5.1 % (0.0-4.0) H 08/14/17 07:05 Baso % (Auto) 0.2 % (0.0-2.0) 08/14/17 07:05 Neut # 0.9 K/uL (1.8-7.0) L 08/14/17 07:05 Lymph # 0.6 K/uL (1.0-4.3) L 08/14/17 07:05 [place] # 0.3 K/uL (0.0-0.8) 08/14/17 07:05 Eos # 0.1 K/uL (0.0-0.7) 08/14/17 07:05 Baso # 0.0 K/uL (0.0-0.2) 08/14/17 07:05 Neutrophils % (Manual) 50 % (50-75) 08/13/17 07:53 Lymphocytes % (Manual) 30 % (20-40) 08/13/17 07:53 Monocytes % (Manual) 18 % (0-10) H 08/13/17 07:53 Eosinophils % (Manual) 2 % (0-4) 08/13/17 07:53 Differential Comment 08/11/17 07:17 Toxic Granulation Present 08/13/17 07:53 Platelet Estimate Slightly decreased (NORMAL) L 08/13/17 07:53 Polychromasia Slight 08/13/17 07:53 Hypochromasia (manual) Slight 08/13/17 07:53 Poikilocytosis (manual Slight 08/13/17 07:53 Anisocytosis (manual) Slight 08/13/17 07:53 Ovalocytes Slight 08/13/17 07:53 Smear Path Review 08/11/17 07:17 ESR 30 mm/hr (0-20) H 08/14/17 07:05 PT 12.0 SECONDS (9.7-12.2) 08/09/17 10:03 INR 1.1 08/09/17 10:03 APTT 28 SECONDS (21-34) 08/09/17 10:03 Sodium 134 mmol/L (132-148) 08/14/17 07:05 Potassium 3.8 mmol/L (3.6-5.2) 08/14/17 07:05 Chloride 102 mmol/L (98-107) 08/14/17 07:05 Carbon Dioxide 25 mmol/L (22-30) 08/14/17 07:05 Anion Gap 11 (10-20) 08/14/17 07:05 BUN 8 mg/dL (7-17) 08/14/17 07:05 Creatinine 0.7 mg/dL (0.7-1.2) 08/14/17 07:05 Est GFR ( Amer) > 60 08/14/17 07:05 Est GFR (Non-Af Amer) > 60 08/14/17 07:05 POC Glucose (mg/dL) 101 mg/dL (65-110) 08/14/17 12:03 Random Glucose 82 mg/dL (65-105) 08/14/17 07:05 Hemoglobin A1c 5.4 % (4.2-6.5) 08/10/17 07:55 Calcium 8.3 mg/dl (8.6-10.4) L 08/14/17 07:05 Phosphorus 4.0 mg/dL (2.5-4.5) 08/13/17 07:49 Magnesium 1.9 mg/dL (1.6-2.3) 08/13/17 07:49 Ferritin 31.2 ng/mL 08/14/17 07:05 Total Bilirubin 0.4 mg/dL (0.2-1.3) 08/14/17 07:05 AST 21 U/L (14-36) 08/14/17 07:05 ALT 33 U/L (9-52) 08/14/17 07:05 Alkaline Phosphatase 84 U/L (38-126) 08/14/17 07:05 Total Protein 6.2 g/dL (6.3-8.3) L 08/14/17 07:05 Albumin 3.1 g/dL (3.5-5.0) L 08/14/17 07:05 Globulin 3.0 gm/dL (2.2-3.9) 08/14/17 07:05 Albumin/Globulin Ratio 1.0 (1.0-2.1) 08/14/17 07:05 Triglycerides 89 mg/dL (0-149) 08/10/17 07:55 Cholesterol 124 mg/dL (0-199) 08/10/17 07:55 LDL Cholesterol Direct 61 mg/dL (0-129) 08/10/17 07:55 HDL Cholesterol 46 mg/dL (30-70) 08/10/17 07:55 Lipase 25 U/L (23-300) 08/09/17 10:03 Vitamin B12 344 pg/mL (239-931) 08/14/17 07:05 Urine Color Colorless (YELLOW) 08/12/17 20:49 Urine Clarity Clear (Clear) 08/12/17 20:49 Urine pH 5.0 (5.0-8.0) 08/12/17 20:49 Ur Specific [place] 1.008 (1.003-1.030) 08/12/17 20:49 Urine Protein Negative mg/dL (NEGATIVE) 08/12/17 20:49 Urine Glucose (UA) Normal mg/dL (Normal) 08/12/17 20:49 Urine Ketones Negative mg/dL (NEGATIVE) 08/12/17 20:49 Urine Blood 1+ (NEGATIVE) H 08/12/17 20:49 Urine Nitrate Negative (NEGATIVE) 08/12/17 20:49 Urine Bilirubin Negative (NEGATIVE) 08/12/17 20:49 Urine Urobilinogen Normal mg/dL (0.2-1.0) 08/12/17 20:49 Ur Leukocyte Esterase Neg [place]/uL (Negative) 08/12/17 20:49 Urine WBC (Auto) < 1 /hpf (0-5) 08/12/17 20:49 Urine RBC (Auto) 1 /hpf (0-3) 08/12/17 20:49 Ur Squamous Epith Cells 1 /hpf (0-5) 08/12/17 20:49 Calcium Oxalate Crystal Few /hpf (<OCC) H 08/09/17 10:30 Urine Bacteria Occ (<OCC) H 08/09/17 10:30 Vancomycin Trough 5.9 ug/mL (5.0-10.0) 08/12/17 08:43 Hepatitis A IgM Ab Negative (NEGATIVE) 08/14/17 07:05 Hep Bs Antigen Negative (NEGATIVE) 08/14/17 07:05 Hep B Core IgM Ab Negative (NEGATIVE) 08/14/17 07:05 Hepatitis C Antibody Negative (NEGATIVE) 08/14/17 07:05 HIV 1&2 Antibody Screen Negative (NEGATIVE) 08/11/17 11:11 Blood Type A POSITIVE 08/09/17 10:30 Antibody Screen Negative 08/09/17 10:30 - Hospital Course Hospital Course: CC: abdominal pain HPI: 57F with PMHx of presents to the ED s/p tummy tuck (and 2 inguinal hernia repair) performed on 07/24/17 with fever, chills, and abdominal pain. Patient reports she was discharged the same day of the surgery and instructed to take Keflex 500mg PO daily x 2 weeks. She started to have fever, chills, abdominal pain, n/v/d, and vaginal bleeding (spotting) and discharged. Patient reports she has been having immense pain, discharge and pus from the surgical site. Patient reports she had colonoscopy this year, normal. Denied headache, chest pain, SOB, or uinary symptoms. PMD: Jose Cobb PMHx: HTN, DM, Breast Cancer Stage 2 currently undergoing Radiation (next session 08/16/17), Arthritis, Asthma PSHx: Gastric Bypass, then Bypass Reversal, cholecystectomy, chest tube 2/2 pneumothorax, carpal tunnel bilaterally Meds: As per MAR, confirmed and reviewed All: NKDA, reaction to IV contrast that occurred once SHx: Denied tobacco, ETOH, or illicit drug use FHx: Mother and Maternal Grandmother of breast cancer in their 50s. Father of colon cancer HOSPITAL COURSE: The patient was treated for an intra-abdominal abscess. Surgery , Dr Velasco, was consulted and per surgery, no surgical intervention was indicated. A CT abd/pelvis was taken on 08/09/17 which showed "two subcutaneous fluid collections one above the umbilicus and one below the umbilicus as described above, may represent postsurgical seroma or abscess formation. Subcutaneous stranding seen at the anterior abdominal wall likely represents post-surgical or inflammatory changes. Fat containing ventral hernia seen at the level of the umbilicus slightly to the left of the midline measures 2.7 centimeter in the AP diameter and 3.2 centimeter in the transverse diameter. No evidence of acute pathology in the abdomen and pelvis otherwise." Wound cultures came back positive for cornybacterium and enterococcus faecalis. She was started on vancomycin 1g ivpb q24 and zosyn 3.375 g ivpb q6h. The zosyn was later discontinued as both organisms were sensitive to the vancomycin alone. Her pain was treated with morphine and her nausea/vomiting with zofran. During her stay her wbc was shown to be low, with the lowest value at 1.9. Cartridge Assembler /Oncologist, Dr Raymundo was consulted. An HIV test was performed which resulted negative. An appointment was scheduled to see Dr Raymundo in her office 2 days after discharge. Her chronic conditions were treated by resuming her home medications. Discharge Exam - Head Exam Head Exam: ATRAUMATIC, NORMAL INSPECTION - Eye Exam Eye Exam: EOMI Pupil Exam: PERRL - ENT Exam ENT Exam: Mucous Membranes Moist - Neck Exam Neck exam: Full Rom, Normal Inspection - Respiratory Exam Respiratory Exam: Clear to PA & Lateral, NORMAL BREATHING PATTERN. absent: Rales, Rhonchi, Wheezes - Cardiovascular Exam Cardiovascular Exam: REGULAR RHYTHM, +S1, +S2. absent: Bradycardia, Tachycardia , Systolic Murmur - GI/Abdominal Exam GI & Abdominal Exam: Normal Bowel Sounds, Soft. absent: Distended, Firm, Guarding, Hernia Additional comments: Large transverse suprapubic incision scar from left ASIS to right ASIS midline saggital incision scar from umbilicus to suprapubic region dressing in hypograstric region is c/d/i - Extremities Exam Extremities exam: full ROM - Neurological Exam Neurological exam: Alert, CN II-XII Intact, Normal Gait, Oriented x3 - Psychiatric Exam Psychiatric exam: Normal Affect, Normal Mood - Skin Skin Exam: Dry, Intact, Normal Color, Warm Discharge Plan - Follow Up Plan Condition: FAIR Disposition: HOME/ ROUTINE Instructions: Oxycodone/Acetaminophen (By mouth), Temazepam (By mouth), Levofloxacin (By mouth), Heart Healthy Diet (DC), Abscess (GEN), Bone Marrow Failure in Children (DC), Bone Marrow Failure in Children (GEN) Additional Instructions: Patient is medically stable for discharge. Please follow the following instructions: Please go to your already scheduled appointment to see ludlow machine operator Dr Raymundo at 2:00pm on 08/16/2017. (phone: [phone] [facility] Please go see your surgeon (from [facility]) as you already have an appointment scheduled for 08/22/2017. You will be discharged with the following prescriptions. Please take them as prescribed: Levaquin 750mg 1 tablet by mouth, once a day, for 10 days Percocet 325/5 1 tablet by mouth, maximum 3 tablets a day with each tablet spaced out by 8 hours. Take only when you have intolerable pain. Temazepam 30mg 1 tablet by mouth at bedtime for insomnia Please continue your normal home medications as prescribed by your primary physician. If symptoms return please come to the ED as soon as possible. Thank You. Referrals: Seema Raymundo MD [Staff Provider] -
== END 2017-08-14 16:43 | disposition home or self-care (01) | DRG 418 ==
LOC: C.ER 09:02 → C.9E 12:04 → C.3T 12:23 → C.9E 12:30 → C.6T 13:07
PROVIDERS: ADMIT Hospitalist; ATTEND Hospitalist
DX: T81.4XXA Infection following a procedure, initial encounter (principal); L76.34 Postprocedural seroma of skin and subcutaneous tissue following other procedure; D61.818 Other pancytopenia; B37.0 Candidal stomatitis; C50.912 Malignant neoplasm of unspecified site of left female breast; J43.9 Emphysema, unspecified; I10 Essential (primary) hypertension; E11.9 Type 2 diabetes mellitus without complications; E78.00 Pure hypercholesterolemia, unspecified; E78.5 Hyperlipidemia, unspecified; G47.30 Sleep apnea, unspecified; J45.909 Unspecified asthma, uncomplicated; K59.00 Constipation, unspecified; M19.90 Unspecified osteoarthritis, unspecified site; Z23 Encounter for immunization; Z87.01 Personal history of pneumonia (recurrent); Z87.442 Personal history of urinary calculi; Z90.49 Acquired absence of other specified parts of digestive tract; Z98.84 Bariatric surgery status